=== PATIENT | male | born 1965 | race Caucasian/White ===

== ENCOUNTER 2016-05-26 20:45 | Outpatient (CLI) | payer BC ==
[~2016-05-26 20:45] MED LIST: AZIT-21 PO; CYCL10TA9 PO; FEXO30TA17 PO; GFN600TCR PO; NAPR550T PO; PNT40TEC PO; SERT50TA PO
== END 2016-05-27 06:30 | disposition home or self-care (01) ==
LOC: SLEEP 20:45
PROVIDERS: ATTEND Family Medicine
DX: G47.33 Obstructive sleep apnea (adult) (pediatric) (principal); I10 Essential (primary) hypertension
CPT/HCPCS: 95811

== ENCOUNTER 2016-08-06 17:45 | Emergency (ER) | payer OTHER, BC ==
[~2016-08-06] VITALS: Ht 180.3 cm; Wt 117.9 kg
[2016-08-06] MEDS ORDERED: SERT100T8 (19:31)
[2016-08-06] MEDS ORDERED: PANT40TA3 (19:31)
[2016-08-06] MEDS ORDERED: TETANUS,DIPTH,PERTUSS P/F (BOOSTRIX) 0.5 ML VIAL IM STA (19:35)
--- NOTE | 2016-08-06 19:39 | ED General ---
General Chief Complaint: General Problems/Pain Stated Complaint: SPLINTER/TETANUS SHOT Nursing Triage Note: patient reports getting metal in finger, reports need tetanus shot Nursing Sepsis Screen: No Definite Risk Source of Information: Patient Exam Limitations: No Limitations History of Present Illness Time Seen by Provider: 19:32 Initial Comments 50-year-old male patient presents to the emergency department complaints of needing a tetanus shot. Take a piece of metal in his finger while trying to shut off a water valve. Timing/Duration: 1-3 Hours Allergies and Home Medications Allergies Coded Allergies: No Known Allergies (Verified Allergy, Unknown, 05/10/05) Uncoded Allergies: LACTOSE (Allergy, Unknown, 05/10/05) Home Medications Pantoprazole Sodium 40 Mg Tablet.dr, #30 (Reported) Sertraline HCl 100 Mg Tablet, #30 (Reported) Constitutional: no symptoms reported Musculoskeletal: no symptoms reported Skin: see HPI All Other Systems Reviewed Negative Unless Noted: Yes (Negative excepted noted.) Past Anqczmf-Qetpxr-Rzzlol Hx Patient Social History Alcohol Use: Denies Use Recreational Drug Use: No Type Used: Smokeless Tobacco Recent Foreign Travel: No Contact w/Someone Who Travel: No Recent Infectious Disease Expo: No Immunizations Up To Date Tetanus Booster (TDap): Unknown Date of Pneumonia Vaccine: Dec 05, 2007 Surgeries HX Surgeries: Yes Surgeries: Orthopedic Respiratory Hx Respiratory Disorders: No Cardiovascular Hx Cardiac Disorders: No Gastrointestinal Gastrointestinal Disorders: Gastroesophageal Reflux Musculoskeletal Hx Musculoskeletal Disorders: No Integumentary HX Skin/Integumentary Disorder: No Reviewed Nursing Assessment Reviewed/Agree w Nursing PMH: Yes Family Medical History Significant Family History: No Pertinent Family Hx Physical Exam Vital Signs Vital Sign - Last 12Hours 08/06/16 19:29 Temp 98.2 Pulse 85 Resp 18 B/P (MAP) 168/97 Pulse Ox 95 O2 Delivery Room Air Capillary Refill : Less Than 3 Seconds General Appearance: No Apparent Distress, WD/WN Cardiovascular: Normal Peripheral Pulses Extremity: Normal Capillary Refill, Normal Range of Motion, Non Tender, Other ( small metal splinter noted in the left 2nd finger (removed with a 19 g needle at the time of exam)) Neurologic/Psychiatric: Alert, Oriented x3, Normal Mood/Affect Skin: Normal Color, Warm/Dry, Other (small metal splinter noted in the left 2nd finger) Progress/Results/Core Measures Results/Orders My Orders Orders - MARLEE,JACQUES L PA Dipht,Pertuss(Acell),Tet Adult (Boostrix (08/06/16 19:35) Vital Signs/I&O Blood Pressure Mean: 120 Departure Impression Impression: Primary Impression: Foreign body of finger Disposition: 01 HOME, SELF-CARE Condition: Improved Departure-Patient Inst. Decision time for Depature: 19:38 Referrals: YASSINE FRENCH MD (PCP/Family) Primary Care Physician Patient Instructions: Diphtheria and Tetanus Toxoids, Acellular Pertussis, and Poliovirus Vaccine Add. Discharge Instructions: All discharge instructions reviewed with patient and/or family. Voiced understanding. Drinks [id number] as directed for pain. Ibuprofen 800 mg by mouth every 8 hours as needed for pain. Shower with antibacterial soap. Follow-up with family practitioner for recheck if needed. Return to the emergency department for worsened symptoms, redness, drainage, fever, or any other concerns. JACQUES WHALEN Aug 06, 2016 19:39
[2016-08-06 19:42] VITALS: BP 168/97
== END 2016-08-06 19:42 | disposition home or self-care (01) ==
LOC: EDUNIT# 17:45 → ER 17:46
DX: S60.451A Superficial foreign body of left index finger, initial encounter (principal); Z23 Encounter for immunization; W22.8XXA Striking against or struck by other objects, initial encounter; Y99.8 Other external cause status
CPT/HCPCS: 90471; 90715; 99281

== ENCOUNTER 2017-05-15 14:03 | Inpatient (IN) | payer BC ==
[~2017-05-15] VITALS: Ht 180.3 cm; Wt 129.9 kg
[2017-05-15] VITALS (10 sets, daily range): BP systolic 113–142; BP diastolic 79–97
[~2017-05-15 14:03] MED LIST changes: +PANT40TA3 PO; +SERT100T8 PO
--- OUTSIDE RECORDS SUMMARY | 2017-05-15 14:17 | XMS REPORT | Continuity of Care Document ---
Author Author [facility] Organization [facility] Address Unknown Phone Unavailable Allergies Active Description Code Type Severity Reaction Onset Reported/Identified Relationship to Patient Clinical Status Yes LACTOSE LACTOSE Unknown N/A 05/10/2005 Yes NKANo Known Allergies NKA Miscellaneous Allergy Unknown N/A 05/10/2005 Medications There is no data. Problems Date Dx Coded Attending Type Code Diagnosis Diagnosed By 12/25/2009 Ot 847.0 12/25/2009 Ot 959.09 12/25/2009 Ot E000.8 12/25/2009 Ot E812.0 01/01/2012 Ot 924.3 CONTUSION OF TOE 01/01/2012 Ot E000.8 OTHER EXTERNAL CAUSE STATUS 01/01/2012 Ot E849.0 ACCIDENT IN HOME 01/01/2012 Ot E928.9 ACCIDENT NOS 01/23/2014 Ot 786.09 01/23/2014 Ot 786.50 01/23/2014 BRYN WORTHY, JAD Mooney Ot 787.02 01/23/2014 BRYN WORTHY, JAD Mooney Ot 789.01 09/17/2015 Ot 786.09 RESPIRATORY ABNORM NEC 09/17/2015 Ot 786.50 CHEST PAIN NOS 09/17/2015 JAD CLEMENTE MD Ot 787.02 NAUSEA ALONE 09/17/2015 JAD CLEMENTE MD Ot 789.01 ABDOMINAL PAIN, RIGHT UPPER QUADRANT 04/14/2016 Ot 786.09 RESPIRATORY ABNORM NEC 04/14/2016 Ot 786.50 CHEST PAIN NOS 04/14/2016 JAD CLEMENTE MD Ot 787.02 NAUSEA ALONE 04/14/2016 JAD CLEMENTE MD Ot 789.01 ABDOMINAL PAIN, RIGHT UPPER QUADRANT 05/27/2016 YASSINE FRENCH MD Ot G47.33 OBSTRUCTIVE SLEEP APNEA (ADULT) (PEDIATR 05/27/2016 YASSINE FRENCH MD Ot I10 ESSENTIAL (PRIMARY) HYPERTENSION 05/27/2016 YASSINE FRENCH MD Ot G47.33 OBSTRUCTIVE SLEEP APNEA (ADULT) (PEDIATR 05/27/2016 YASSINE FRENCH MD Ot I10 ESSENTIAL (PRIMARY) HYPERTENSION 07/13/2016 Ot 786.09 RESPIRATORY ABNORM NEC 07/13/2016 Ot 786.50 CHEST PAIN NOS 07/13/2016 JAD CLEMENTE MD Ot 787.02 NAUSEA ALONE 07/13/2016 JAD CLEMENTE MD Ot 789.01 ABDOMINAL PAIN, RIGHT UPPER QUADRANT 08/06/2016 Ot 786.09 RESPIRATORY ABNORM NEC 08/06/2016 Ot 786.50 CHEST PAIN NOS 08/06/2016 JAD CLEMENTE MD Ot 787.02 NAUSEA ALONE 08/06/2016 JAD CLEMENTE MD Ot 789.01 ABDOMINAL PAIN, RIGHT UPPER QUADRANT 08/06/2016 JACQUES MARROQUIN Ot S60.451A SUPERFICIAL FOREIGN BODY OF LEFT INDEX F 08/06/2016 JACQUES MARROQUIN Ot W22.8XXA STRIKING AGAINST OR STRUCK BY OTHER OBJE 08/06/2016 JACQUES MARROQUIN Ot Y99.8 OTHER EXTERNAL CAUSE STATUS 08/06/2016 JACQUES MARROQUIN Ot Z23 ENCOUNTER FOR IMMUNIZATION 08/06/2016 Ot 786.09 RESPIRATORY ABNORM NEC 08/06/2016 Ot 786.50 CHEST PAIN NOS 08/06/2016 JAD CLEMENTE MD Ot 787.02 NAUSEA ALONE 08/06/2016 JAD CLEMENTE MD Ot 789.01 ABDOMINAL PAIN, RIGHT UPPER QUADRANT 08/11/2016 Ot 786.09 RESPIRATORY ABNORM NEC 08/11/2016 Ot 786.50 CHEST PAIN NOS 08/11/2016 JAD CLEMENTE MD Ot 787.02 NAUSEA ALONE 08/11/2016 JAD CLEMENTE MD Ot 789.01 ABDOMINAL PAIN, RIGHT UPPER QUADRANT Procedures There is no data. Results There is no data. Encounters ACCT No. Visit Date/Time Discharge Status Pt. Type Provider Facility Loc./Unit Complaint [id number] 08/06/2016 17:46:00 08/06/2016 19:42:00 DIS Emergency JACQUES MARROQUIN [facility] ER SPLINTER/TETANUS SHOT [id number] 05/26/2016 20:45:00 05/27/2016 06:30:00 DIS Outpatient YASSINE FRENCH MD [facility] SLEEP MEGHAN,SNORING [id number] 11/30/2012 07:36:00 11/30/2012 23:59:59 CLS Outpatient JAD CLEMENTE MD J [facility] RUQ PAIN,NAUSEA, PAIN AND NAUSEA WORSE WHEN EATING [id number] 01/01/2012 08:24:00 Document Registration [id number] 07/11/2011 11:16:00 Document Registration [id number] 12/25/2009 20:23:00 Document Registration
[2017-05-15] MEDS ORDERED: HEParin DRIP 25000 UNIT/500ML 500 ML IV SCH (14:55)
--- NOTE | 2017-05-15 15:44 | History & Physical ---
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 His right leg worsened in pain, swelling so he went to [facility] on 05/12/17- admitted for DVT and PE. He was placed on daily xarelto 15mg due to kidney failure. He was discharged from [facility] on 05/14/17 with Cr going from 1.5 to 1.6 and WBC 14K to 16K; was concerned that he was discharged too soon as he did not look well enough to go home. Pt and his came to [facility] today for follow up and I repeated labs with Cr 1.8 and his dyspnea has worsened. Based on [facility] labs his CrCl was ~70 so he should have been on xarelto 15mg BID for 21 days. Also patient has posterior right leg pain due to the DVT. Admitting to ICU- [facility]- consulting Dr. Goldman for reading Echo to evaluate right heart strain and Dr. Abreu for pulm consult. Pt can not have another CTA at this time. LE Doppler on 05/12/17- Right DVT- mid superficial femoral vein to popliteal vein and posterior tibial and peroneal vein CTA- 05/13/17- scattered pulm emboli nearly all lobes of both lungs- moderate burden- Saddle emboli at bifurcation of right pulm artery into upper/lower lobe arteries. occlusive embolus in left lower lobe vessel, complete obstruction of a basilar right lower lobe vessel. 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 He is obese as well. Will be starting heparin (complete) protocol. Of note patient had been using ibuprofen for his right posterior knee pain the week prior to this event. Date of Admission May 15, 2017 at 14:12 Date Seen by Provider: May 15, 2017 Time Seen by Provider: 11:30 I consulted on this patient on 05/15/17 15:28 Attending Physician Chirag Morales MD Admitting Physician Chirag Morales MD Consult Dr. Lois Goldman, Card Allergies and Home Medications Allergies Coded Allergies: NKANo Known Allergies (Verified Allergy, Unknown, 05/10/05) Uncoded Allergies: LACTOSE (Allergy, Unknown, 05/10/05) Home Medications Hydrocodone/Acetaminophen 1 Each Tablet, 1 TAB PO Q4H PRN for PAIN-MODERATE, ( Reported) Pantoprazole Sodium 40 Mg Tablet.dr, 40 MG PO HS, (Reported) LAST FILLED 04/11/17 #30 Rivaroxaban 15 Mg Tablet, 15 MG PO DAILY, (Reported) Sertraline HCl 100 Mg Tablet, 100 MG PO HS, (Reported) LAST FILLED 04/11/17 #30 Patient Home Medication List Home Medication List Reviewed: Yes Past Wenbjte-Upjosw-Prvmie Hx Patient Social History Marrital Status: Employed/Student: employed Type Used: Smokeless Tobacco Recent Foreign Travel: No Contact w/other who traveled: No Immunizations Up To Date Tetanus Booster (TDap): Unknown Date of Pneumonia Vaccine: Dec 05, 2007 Surgeries Yes Orthopedic Respiratory No Cardiovascular No Neurological No Genitourinary No Gastrointestinal Yes Gastroesophageal Reflux Musculoskeletal No Endocrine History of Endocrine Disorders: No HEENT History of HEENT Disorders: No Cancer No Psychosocial History of Psychiatric Problem: No Integumentary History of Skin or Integumenta: No Blood Transfusions History of Blood Disorders: No Family Medical History Significant Family History: No Pertinent Family Hx Review of Systems Review of Systems General: No Chills, No Night Sweats, Fatigue, No Appetite HEENT: No Head Aches, No Visual Changes Pulmonary: Dyspnea, No Cough Cardiovascular: Chest Pain, No: Palpitations Gastrointestinal: No: Nausea, Vomiting, Abdominal Pain Genitourinary: No Dysuria, No Frequency Neurological: Weakness Physical Exam Vital Signs Vital Signs - First Documented 05/15/17 14:39 Temp 100.5 Pulse 101 Resp 24 B/P (MAP) 116/83 (94) Pulse Ox 96 O2 Delivery Room Air Capillary Refill : General Appearance: WD/WN, Moderate Distress (from pain (right leg)) HEENT: PERRL/EOMI Neck: Full Range of Motion, Normal Inspection, Non Tender, Supple Respiratory: Chest Non Tender, Lungs Clear, Normal Breath Sounds, No Accessory Muscle Use, No Respiratory Distress Cardiovascular: Regular Rate, Rhythm (tachycardia at times.) Gastrointestinal: Normal Bowel Sounds, Non Tender, Soft Rectal: Deferred Extremity: Calf Tenderness (posterior right leg pain, warm, pitting edema 1+) Neurologic/Psychiatric: Alert, Oriented x3 Skin: Normal Color, Warm/Dry Assessment/Plan Assessment/Plan Admission Dx 51 yo M direct admit to ICU- * bilateral pulmonary embolism- heparin gtts PTT/INR, 2D echo to further evaluate right heart strain, IVF -will need hypercoagulable state workup *acute kidney failure- IVF, avoid nephrotoxic agents, (worsened by CTA on 05/13) *Right popliteal DVT- heparin gtts * HTN- normotensive- will monitor- *Depression- continue zoloft, mood stable. *obesity- weight loss with diet and exercise. Dispo: worsening of dyspnea, pain, kidney function- consulting , [facility] to sent CT images to [email or web address] to be uploaded into patient's chart. Admission Status: Inpatient Order (span 2 midnights) Reason for Inpatient Admission: Patient has a significant DVT and pulmonary embolism burden. He was on subtherapeutic xarelto and did not seem to be improving- Kidney failure was worsening; dyspnea was noted and right leg pain was significant. He will be inpatient for 2 midnights to improve his current issues noted above. Assessment and Plan treating for DVT, bilateral PE IVF for renal failure- monitor Cr. Problems: CHIRAG MORALES MD May 15, 2017 15:44
[2017-05-15 16:02] LABS: INR 1.6 (0.8-1.4); PROTHROMBIN TIME PATIENT 19.2 SEC (12.2-14.7)
[2017-05-15 16:09] LABS: ALBUMIN 3.3 GM/DL (3.2-4.5); BILIRUBIN,TOTAL 0.5 MG/DL (0.1-1.0); CALCIUM 8.5 MG/DL (8.5-10.1); CREATININE SERUM 1.8 MG/DL (0.60-1.30); TOTAL PROTEIN 6.5 GM/DL (6.4-8.2)
--- NOTE | 2017-05-15 16:31 | Diagnostic Imaging Report ---
INDICATION: Shortness of breath. COMPARISON: 07/11/2011. FINDINGS: A single view of the chest demonstrates clear lungs bilaterally. The heart is normal. There is no pneumothorax. The osseous structures are normal. IMPRESSION: Negative chest. Dictated by: Dictated on workstation # [id number]
[2017-05-15] MEDS: HEParin 1000 UNIT/ML (10ML VIAL) FOR BOLUS IV SCH ×2 (16:33→21:39)
[2017-05-15] MEDS ORDERED: RIVA15TA PO (16:38)
[2017-05-15] MEDS ORDERED: HYDR-3812 PO (16:38)
[2017-05-15] MEDS: NS IV 1000 ML 1,000 ML IV SCH (16:39)
[2017-05-15] MEDS: HYDROcodone/APAP 5 MG/325 MG (LORTAB) TAB PO PRN ×2 (16:40→21:33)
[2017-05-15 18:08] LABS: BASOPHILS # (AUTO) 0.1 10^3/uL (0.0-0.1); BASOPHILS % (AUTO) 0 % (0-10); EOSINOPHILS # (AUTO) 0.4 10^3/uL (0.0-0.3); EOSINOPHILS % (AUTO) 2 % (0-10); HEMATOCRIT 42 % (40-54); HEMOGLOBIN 14.2 G/DL (13.3-17.7); LYMPHOCYTES # (AUTO) 1.6 X 10^3 (1.0-4.0); LYMPHOCYTES % (AUTO) 10 % (12-44); MEAN CORPUSCULAR HEMOGLOBIN 31 PG (25-34); MEAN CORPUSCULAR HGB CONC 34 G/DL (32-36); MEAN CORPUSCULAR VOLUME 91 FL (80-99); MEAN PLATELET VOLUME 10.2 FL (7.4-10.4); MONOCYTES # (AUTO) 1.9 X 10^3 (0.0-1.0); MONOCYTES % (AUTO) 12 % (0-12); NEUTROPHILS # (AUTO) 12.1 X 10^3 (1.8-7.8); NEUTROPHILS % (AUTO) 75 % (42-75); PLATELET COUNT 268 10^3/uL (130-400); RED BLOOD COUNT 4.59 10^6/uL (4.35-5.85); RED CELL DISTRIBUTION WIDTH 13.2 % (10.0-14.5); WHITE BLOOD COUNT 16.2 10^3/uL (4.3-11.0)
[2017-05-15] MEDS ORDERED: ACETAMINOPHEN 500 MG TAB (TYLENOL) PO PRN (18:15)
[2017-05-15 18:32] LABS: BAND NEUTROPHILS 0 %; BASOPHILS % (MANUAL) 0 %; EOSINOPHILS % (MANUAL) 1 %; LYMPHOCYTES % (MANUAL) 9 %; MONOCYTES % (MANUAL) 12 %; NEUTROPHILS % (MANUAL) 78 %; RBC MORPH NORMAL
[2017-05-15] MEDS: PANTOPRAZOLE 40 MG (PROTONIX) TAB PO SCH (20:03)
[2017-05-15] MEDS: SERTRALINE 100 MG (ZOLOFT) TAB PO SCH (20:03)
[2017-05-16] VITALS (14 sets, daily range): BP systolic 112–140; BP diastolic 60–90
[2017-05-16] MEDS: NS IV 1000 ML 1,000 ML IV SCH ×3 (02:00→13:28)
[2017-05-16 04:19] LABS: BASOPHILS % (AUTO) 0 % (0-10); EOSINOPHILS # (AUTO) 0.5 10^3/uL (0.0-0.3); EOSINOPHILS % (AUTO) 3 % (0-10); HEMATOCRIT 39 % (40-54); LYMPHOCYTES # (AUTO) 2.2 X 10^3 (1.0-4.0); LYMPHOCYTES % (AUTO) 15 % (12-44); MEAN CORPUSCULAR HEMOGLOBIN 30 PG (25-34); MEAN CORPUSCULAR HGB CONC 33 G/DL (32-36); MEAN CORPUSCULAR VOLUME 91 FL (80-99); MONOCYTES # (AUTO) 1.9 X 10^3 (0.0-1.0); MONOCYTES % (AUTO) 13 % (0-12); NEUTROPHILS # (AUTO) 10.4 X 10^3 (1.8-7.8); NEUTROPHILS % (AUTO) 69 % (42-75); PLATELET COUNT 268 10^3/uL (130-400); RED BLOOD COUNT 4.27 10^6/uL (4.35-5.85); RED CELL DISTRIBUTION WIDTH 13.2 % (10.0-14.5)
[2017-05-16 04:34] LABS: BILIRUBIN,TOTAL 0.4 MG/DL (0.1-1.0); CALCIUM 8.3 MG/DL (8.5-10.1); CREATININE SERUM 1.91 MG/DL (0.60-1.30); POTASSIUM 4.1 MMOL/L (3.6-5.0)
--- NOTE | 2017-05-16 07:42 | Pulmonary Consultation ---
History of Present Illness History of Present Illness Date of Consultation 05/16/17 07:37 Time Seen by Provider: 07:37 Date of Admission History of Present Illness 51yo with a recent dx of Acute PE and right DVT at [facility] presented to ICU as direct admit from Dr. Morales. Pt was recently discharged from [facility] on 05/14/17 with Xeralto a15mg daily for acute PE. SOB was progressively worsening which led to this admission. Allergies and Home Medications Allergies Coded Allergies: NKANo Known Allergies (Verified Allergy, Unknown, 05/10/05) Uncoded Allergies: LACTOSE (Allergy, Unknown, 05/10/05) Home Medications Hydrocodone/Acetaminophen 1 Each Tablet, 1 TAB PO Q4H PRN for PAIN-MODERATE, ( Reported) Pantoprazole Sodium 40 Mg Tablet.dr, 40 MG PO HS, (Reported) LAST FILLED 04/11/17 #30 Rivaroxaban 15 Mg Tablet, 15 MG PO DAILY, (Reported) Sertraline HCl 100 Mg Tablet, 100 MG PO HS, (Reported) LAST FILLED 04/11/17 #30 Past [place]ts[place]-Jpsktf-Gkcfuo Hx Patient Social History Alcohol Use: Denies Use Recreational Drug Use: No Smoking Status: Former Smoker Type Used: Smokeless Tobacco Recent Foreign Travel: No Contact w/Someone Who Travel: No Recent Infectious Disease Expo: No Recent Hopitalizations: Yes Immunizations Up To Date Tetanus Booster (TDap): Unknown Date of Pneumonia Vaccine: Dec 05, 2007 Date of Influenza Vaccine: Dec 04, 2017 Seasonal Allergies Seasonal Allergies: Yes Surgeries History of Surgeries: Yes Surgeries: Orthopedic Respiratory History of Respiratory Disorde: Yes Respiratory Disorders: Asthma, Pulmonary Embolism, Sleep Apnea Cardiovascular History of Cardiac Disorders: No Neurological History of Neurological Disord: No Genitourinary History of Genitourinary Disor: No Gastrointestinal History of Gastrointestinal Di: Yes (esophageal ulcer, ) Gastrointestinal Disorders: Gastroesophageal Reflux, Hiatal Hernia, Ulcer Musculoskeletal History of Musculoskeletal Dis: No Endocrine History of Endocrine Disorders: No HEENT History of HEENT Disorders: No Cancer History of Cancer: Yes Cancer: Skin Cancer Comment: 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 Dyspnea, Edema, Lt Headedness, Other Gastrointestinal: Nausea Neurological: Weakness Exam Exam Vital Signs Date Time Temp Pulse Resp B/P (MAP) Pulse Ox O2 Delivery O2 Flow Rate FiO2 05/16/17 07:00 98.6 05/16/17 06:00 78 12 124/90 (101) 93 Room Air 05/16/17 05:00 81 30 116/85 (95) 92 Room Air 05/16/17 04:00 76 12 126/89 (101) 97 Room Air 05/16/17 04:00 95 Room Air 05/16/17 04:00 99.1 05/16/17 03:00 78 28 122/86 (98) 94 Room Air 05/16/17 02:00 79 12 119/90 (100) 93 Room Air 05/16/17 01:00 87 05/16/17 01:00 85 19 126/89 (101) 93 Room Air 05/16/17 00:00 99.5 05/16/17 00:00 96 Room Air 05/16/17 00:00 92 20 124/85 (98) 93 Room Air 05/16/17 00:00 99.0 05/15/17 23:00 89 14 120/80 (93) 93 Room Air 05/15/17 22:00 100.0 05/15/17 22:00 92 16 137/92 (107) 98 Room Air 05/15/17 21:00 97 16 126/90 (102) 96 Room Air 05/15/17 21:00 100.3 05/15/17 20:05 95 Room Air 05/15/17 20:00 95 16 122/93 (103) 95 Room Air 05/15/17 20:00 100.6 05/15/17 19:00 103 15 117/80 (92) 94 Room Air 05/15/17 19:00 103 05/15/17 18:09 100.3 05/15/17 18:00 109 15 113/81 (92) 92 Room Air 05/15/17 17:07 99.7 05/15/17 17:00 90 15 142/79 (100) 96 Room Air 05/15/17 16:00 92 17 136/97 (110) 96 Room Air 05/15/17 15:00 Room Air 05/15/17 15:00 92 16 128/92 (104) 96 Room Air 05/15/17 14:40 101 05/15/17 14:39 100.5 101 24 116/83 (94) 96 Room Air I & O 05/16/17 07:00 Intake Total 940 ml Output Total 1475 ml Balance -535 ml General Appearance: WD/WN, Moderate Distress (from pain (right leg)) HEENT: PERRL/EOMI, TMs Normal, Normal ENT Inspection Respiratory: Chest Non Tender, Lungs Clear, Normal Breath Sounds, No Accessory Muscle Use, No Respiratory Distress Cardiovascular: Regular Rate, Rhythm (tachycardia at times.) Gastrointestinal: non tender, soft, no organomegaly, no pulsatile mass Extremity: Calf Tenderness Neurologic/Psychiatric: Alert, Oriented x3 Skin: Normal Color, Warm/Dry Results Lab Laboratory Tests 05/15/17 15:35 05/16/17 03:45 Assessment/Plan Assessment/Plan Bilateral PE with acute RLE DVT - Provoked pt works with [employer] and 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 -Echocardiogram is pending -Change anticoagulation to Eliquis Acute renal failure -IVF and monitor MEGHAN with obesity -PT has his CPAP machine at bedside. 255 SANNA CORNELL DO May 16, 2017 07:42
[2017-05-16] MEDS: HYDROcodone/APAP 5 MG/325 MG (LORTAB) TAB PO PRN ×3 (08:02→21:05)
--- NOTE | 2017-05-16 08:20 | Consultation-Cardiology ---
HPI-Cardiology Cardiology Consultation Date of Consultation 05/16/17 Date of Admission Time Seen by Provider: 08:16 Indication: DVT HPI 51 years old gentleman with history of sleep apnea, hospitalized in [facility] last week for leg pain, diagnosed with DVT and PE. He was started on Xarelto and discharged home, continue to have worsening pain in his leg. Denied any shortness of breath. No palpitation, no syncope or near syncopal episodes. No claudication. 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 No fever or chills. Upper my evaluation he still having pain in his calf. No swelling was reported. Home Medications & Allergies Allergies: Coded Allergies: NKANo Known Allergies (Verified Allergy, Unknown, 05/10/05) Uncoded Allergies: LACTOSE (Allergy, Unknown, 05/10/05) Home Medication List Reviewed: Yes LQS-[id number]-Wunjyx Hx Patient Social History Marital Status: Employed/Student: employed Alcohol Use: Denies Use Recreational Drug Use: No Smoking Status: Former Smoker Type Used: Smokeless Tobacco Recent Foreign Travel: No Recent Infectious Disease Expo: No Recent Hopitalizations: Yes Physical Abuse Screen: No Sexual Abuse: No Immunizations Up To Date Tetanus Booster (TDap): Unknown Date of Pneumonia Vaccine: Dec 05, 2007 Date of Influenza Vaccine: Dec 04, 2017 Past Medical History Discussed below Family Medical History Significant Family History: No Pertinent Family Hx Family Medical Hx Non Contributory Constitutional: no symptoms reported, see HPI EENTM: see HPI, no symptoms reported Respiratory: see HPI, No cough, dyspnea on exertion, No hemoptysis, No orthopnea, No phlegm, No short of breath, No stridor, No wheezing, No other Cardiovascular: see HPI, No chest pain, No edema, No Hx of Intervention, No palpitations, No syncope, No vascular heart diseas, No other Gastrointestinal: no symptoms reported, see HPI Genitourinary: no symptoms reported, see HPI Musculoskeletal: see HPI, muscle pain (calf) Skin: no symptoms reported, see HPI Psychiatric/Neurological: No Symptoms Reported, See HPI Reviewed Test Results Reviewed Test Results Lab Laboratory Tests Test 05/15/17 15:35 05/15/17 20:55 05/16/17 03:45 Range/Units White Blood Count 16.2 H 15.0 H 4.3-11.0 10^3/uL Red Blood Count 4.59 4.27 L 4.35-5.85 10^6/uL Hemoglobin 14.2 13.0 L 13.3-17.7 G/DL Hematocrit 42 39 L 40-54 % Mean Corpuscular Volume 91 91 80-99 FL Mean Corpuscular Hemoglobin 31 30 25-34 PG Mean Corpuscular Hemoglobin Concent 34 33 32-36 G/DL Red Cell Distribution Width 13.2 13.2 10.0-14.5 % Platelet Count 268 268 130-400 10^3/uL Mean Platelet Volume 10.2 10.0 7.4-10.4 FL Neutrophils (%) (Auto) 75 69 42-75 % Lymphocytes (%) (Auto) 10 L 15 12-44 % Monocytes (%) (Auto) 12 13 H 0-12 % Eosinophils (%) (Auto) 2 3 0-10 % Basophils (%) (Auto) 0 0 0-10 % Neutrophils # (Auto) 12.1 H 10.4 H 1.8-7.8 X 10^3 Lymphocytes # (Auto) 1.6 2.2 1.0-4.0 X 10^3 Monocytes # (Auto) 1.9 H 1.9 H 0.0-1.0 X 10^3 Eosinophils # (Auto) 0.4 H 0.5 H 0.0-0.3 10^3/uL Basophils # (Auto) 0.1 0.0 0.0-0.1 10^3/uL Neutrophils % (Manual) 78 % Lymphocytes % (Manual) 9 % Monocytes % (Manual) 12 % Eosinophils % (Manual) 1 % Basophils % (Manual) 0 % Band Neutrophils 0 % Blood Morphology Comment NORMAL Prothrombin Time 19.2 H 12.2-14.7 SEC INR Comment 1.6 H 0.8-1.4 Activated Partial Thromboplast Time 48 H 57 H 86 H 24-35 SEC Sodium Level 134 L 138 135-145 MMOL/L Potassium Level 4.0 4.1 3.6-5.0 MMOL/L Chloride Level 101 104 98-107 MMOL/L Carbon Dioxide Level 26 24 21-32 MMOL/L Anion Gap 7 10 5-14 MMOL/L Blood Urea Nitrogen 20 H 22 H 7-18 MG/DL Creatinine 1.80 H 1.91 H 0.60-1.30 MG/DL Estimat Glomerular Filtration Rate 40 37 BUN/Creatinine Ratio 11 12 Glucose Level 96 110 H 70-105 MG/DL Lactic Acid Level 0.85 0.50-2.00 MMOL/L Calcium Level 8.5 8.3 L 8.5-10.1 MG/DL Total Bilirubin 0.5 0.4 0.1-1.0 MG/DL Aspartate Amino Transf (AST/SGOT) 12 9 5-34 U/L Alanine Aminotransferase (ALT/SGPT) 11 12 0-55 U/L Alkaline Phosphatase 78 68 40-136 U/L Total Protein 6.5 6.0 L 6.4-8.2 GM/DL Albumin 3.3 3.0 L 3.2-4.5 GM/DL Physical Exam Vital Signs Vital Signs - First Documented 05/15/17 14:39 Temp 100.5 Pulse 101 Resp 24 B/P (MAP) 116/83 (94) Pulse Ox 96 O2 Delivery Room Air Capillary Refill : General Appearance: No Apparent Distress, WD/WN Eyes: Bilateral Eye Normal Inspection, Bilateral Eye PERRL, Bilateral Eye EOMI HEENT: PERRL/EOMI, TMs Normal, Normal ENT Inspection, Pharynx Normal Neck: Full Range of Motion, Normal Inspection, Non Tender, Supple, Carotid Bruit Respiratory: Chest Non Tender, Lungs Clear, Normal Breath Sounds, No Accessory Muscle Use, No Respiratory Distress Cardiovascular: Regular Rate, Rhythm, No Edema, No Gallop, No JVD, No Murmur, Normal Peripheral Pulses Gastrointestinal: Normal Bowel Sounds, No Organomegaly, No Pulsatile Mass, Non Tender, Soft Back: Normal Inspection, No CVA Tenderness, No Vertebral Tenderness Extremity: Normal Capillary Refill, Normal Inspection, Normal Range of Motion, Non Tender, No Calf Tenderness, No Pedal Edema Neurologic/Psychiatric: Alert, Oriented x3, No Motor/Sensory Deficits, Normal Mood/Affect Skin: Normal Color, Warm/Dry Lymphatic: No Adenopathy A/P-Cardiology Admission Diagnosis Deep venous thrombosis Pulmonary embolism Acute renal insufficiency COPD Assessment/Plan Deep venous thrombosis and pulmonary embolism, diagnosed last week, having worsening pain. I will repeat venous Doppler, I changed him to Eliquis 10 mg twice daily for one week then 5 mg twice daily and continue to monitor, patient will need to have hypercoagulable state workup. I will start with factor V Leiden at this point. Acute renal insufficiency, receiving IV fluids, continue to monitor renal function. COPD/obstructive sleep apnea using C Pap Depression, maintained on Zoloft Obesity, BMI 39, we discussed diet and exercise with weight loss. Clinical Quality Measures DVT/VTE Risk/Contraindication: Risk Factor Score Per Nursin RFS Level Per Nursing on Admit: 4+=Very High CARLOS SALDAÑA MD May 16, 2017 08:20
--- NOTE | 2017-05-16 08:31 | Progress Note (SOAP) ---
Subjective Subjective Date Seen by Provider: May 16, 2017 Time Seen by Provider: 08:50 No overnight events Eating normal Son came and visited last night and became ill. Pt denies issues with breathing, nausea, vomiting. No chest pain, right leg pain is still present Urinating without difficulty Pt wonders what the time frame is for going home. Review of Systems General: No Chills, No Night Sweats, Fatigue, No Appetite HEENT: No Head Aches, No Visual Changes Pulmonary: Dyspnea, No Cough Cardiovascular: Chest Pain, No: Palpitations Gastrointestinal: No: Nausea, Vomiting, Abdominal Pain Genitourinary: No Dysuria, No Frequency Neurological: Weakness Objective Exam Vital Signs Vital Signs Date Time Temp Pulse Resp B/P (MAP) Pulse Ox O2 Delivery O2 Flow Rate FiO2 05/16/17 08:03 98.0 80 16 137/70 (92) 94 Room Air 05/16/17 07:00 98.6 05/16/17 06:00 78 12 124/90 (101) 93 Room Air 05/16/17 05:00 81 30 116/85 (95) 92 Room Air 05/16/17 04:00 76 12 126/89 (101) 97 Room Air 05/16/17 04:00 95 Room Air 05/16/17 04:00 99.1 05/16/17 03:00 78 28 122/86 (98) 94 Room Air 05/16/17 02:00 79 12 119/90 (100) 93 Room Air 05/16/17 01:00 87 05/16/17 01:00 85 19 126/89 (101) 93 Room Air 05/16/17 00:00 99.5 05/16/17 00:00 96 Room Air 05/16/17 00:00 92 20 124/85 (98) 93 Room Air 05/16/17 00:00 99.0 05/15/17 23:00 89 14 120/80 (93) 93 Room Air 05/15/17 22:00 100.0 05/15/17 22:00 92 16 137/92 (107) 98 Room Air 05/15/17 21:00 97 16 126/90 (102) 96 Room Air 05/15/17 21:00 100.3 05/15/17 20:05 95 Room Air 05/15/17 20:00 95 16 122/93 (103) 95 Room Air 05/15/17 20:00 100.6 05/15/17 19:00 103 15 117/80 (92) 94 Room Air 05/15/17 19:00 103 05/15/17 18:09 100.3 05/15/17 18:00 109 15 113/81 (92) 92 Room Air 05/15/17 17:07 99.7 05/15/17 17:00 90 15 142/79 (100) 96 Room Air 05/15/17 16:00 92 17 136/97 (110) 96 Room Air 05/15/17 15:00 Room Air 05/15/17 15:00 92 16 128/92 (104) 96 Room Air 05/15/17 14:40 101 05/15/17 14:39 100.5 101 24 116/83 (94) 96 Room Air I & O 05/16/17 07:00 Intake Total 940 ml Output Total 1475 ml Balance -535 ml General Appearance: WD/WN, Moderate Distress (from pain (right leg)) Eyes: Bilateral Eye Normal Inspection, Bilateral Eye PERRL, Bilateral Eye EOMI HEENT: PERRL/EOMI Neck: Full Range of Motion, Normal Inspection, Non Tender, Supple Respiratory: Chest Non Tender, Lungs Clear, Normal Breath Sounds, No Accessory Muscle Use, No Respiratory Distress Cardiovascular: Regular Rate, Rhythm (tachycardia at times.) Gastrointestinal: Normal Bowel Sounds, Non Tender, Soft Rectal: Deferred Back: Normal Inspection, No CVA Tenderness, No Vertebral Tenderness Extremity: Calf Tenderness (posterior right leg pain, warm, pitting edema 1+) Neurologic/Psychiatric: Alert, Oriented x3 Skin: Normal Color, Warm/Dry Lymphatic: No Adenopathy Results Lab Laboratory Tests 05/15/17 15:35: White Blood Count 16.2H, Red Blood Count 4.59, Hemoglobin 14.2, Hematocrit 42, Mean Corpuscular Volume 91, Mean Corpuscular Hemoglobin 31, Mean Corpuscular Hemoglobin Concent 34, Red Cell Distribution Width 13.2, Platelet Count 268, Mean Platelet Volume 10.2, Neutrophils (%) (Auto) 75, Lymphocytes (%) (Auto) 10L , Monocytes (%) (Auto) 12, Eosinophils (%) (Auto) 2, Basophils (%) (Auto) 0, Neutrophils # (Auto) 12.1H, Lymphocytes # (Auto) 1.6, Monocytes # (Auto) 1.9H, Eosinophils # (Auto) 0.4H, Basophils # (Auto) 0.1, Neutrophils % (Manual) 78, Lymphocytes % (Manual) 9, Monocytes % (Manual) 12, Eosinophils % (Manual) 1, Basophils % (Manual) 0, Band Neutrophils 0, Blood Morphology Comment NORMAL, Prothrombin Time 19.2H, INR Comment 1.6H, Activated Partial Thromboplast Time 48H, Sodium Level 134L, Potassium Level 4.0, Chloride Level 101, Carbon Dioxide Level 26, Anion Gap 7, Blood Urea Nitrogen 20H, Creatinine 1.80H, Estimat Glomerular Filtration Rate 40, BUN/Creatinine Ratio 11, Glucose Level 96, Lactic Acid Level 0.85, Calcium Level 8.5, Total Bilirubin 0.5, Aspartate Amino Transf (AST/SGOT) 12, Alanine Aminotransferase (ALT/SGPT) 11, Alkaline Phosphatase 78, Total Protein 6.5, Albumin 3.3 05/15/17 20:55: Activated Partial Thromboplast Time 57H 05/16/17 03:45: White Blood Count 15.0H, Red Blood Count 4.27L, Hemoglobin 13.0L, Hematocrit 39L , Mean Corpuscular Volume 91, Mean Corpuscular Hemoglobin 30, Mean Corpuscular Hemoglobin Concent 33, Red Cell Distribution Width 13.2, Platelet Count 268, Mean Platelet Volume 10.0, Neutrophils (%) (Auto) 69, Lymphocytes (%) (Auto) 15 , Monocytes (%) (Auto) 13H, Eosinophils (%) (Auto) 3, Basophils (%) (Auto) 0, Neutrophils # (Auto) 10.4H, Lymphocytes # (Auto) 2.2, Monocytes # (Auto) 1.9H, Eosinophils # (Auto) 0.5H, Basophils # (Auto) 0.0, Activated Partial Thromboplast Time 86H, Sodium Level 138, Potassium Level 4.1, Chloride Level 104 , Carbon Dioxide Level 24, Anion Gap 10, Blood Urea Nitrogen 22H, Creatinine 1.91H, Estimat Glomerular Filtration Rate 37, BUN/Creatinine Ratio 12, Glucose Level 110H, Calcium Level 8.3L, Total Bilirubin 0.4, Aspartate Amino Transf (AST /SGOT) 9, Alanine Aminotransferase (ALT/SGPT) 12, Alkaline Phosphatase 68, Total Protein 6.0L, Albumin 3.0L Assessment/Plan Assessment/Plan Admission Dx 51 yo M direct admit to ICU- * bilateral pulmonary embolism- switched to eliquis 10mg BID x7days then 5mg BID- as eliquis will not need to be renally adjusted. 2D echo normal LVEF 60-65 % -will need hypercoagulable state workup- factor V leiden ordered. *acute kidney failure- IVF, avoid nephrotoxic agents, (worsened by CTA on 05/13) *Right popliteal DVT- eliquis * HTN- normotensive- will monitor- *Depression- continue zoloft, mood stable. *obesity- weight loss with diet and exercise. *SIRS- fever, leukocytosis, tachycardia- due to PE, DVT- supportive care- treating DVT, PE- continue to monitor- gusman-cultured. Dispo: patient is improving.- will plan to monitor overnight with plan to d/c to home tomorrow 05/17/17 if he continues to improve- would like to see Cr start to trend down. Reason for Inpatient Admission: patient was admitted to ICU for concern for acute decompensation related to his renal failure and DVT, pulmonary embolism burden. Assessment and Plan as above Problems: (1) Bilateral pulmonary embolism (2) Acute deep vein thrombosis of right popliteal vein (3) Acute renal failure Qualifiers: Qualified Codes: N17.9 - Acute kidney failure, unspecified Assessment & Plan: IVF, avoid nephrotoxic agents. (4) Dysthymia (5) SIRS without acute organ dysfunction due to non-infectious process Admission Dx 51 yo M direct admit to ICU- * bilateral pulmonary embolism- heparin gtts PTT/INR, 2D echo to further evaluate right heart strain, IVF -will need hypercoagulable state workup *acute kidney failure- IVF, avoid nephrotoxic agents, (worsened by CTA on 05/13) *Right popliteal DVT- heparin gtts * HTN- normotensive- will monitor- *Depression- continue zoloft, mood stable. *obesity- weight loss with diet and exercise. Dispo: worsening of dyspnea, pain, kidney function- consulting , Dr. Abreu [facility] to sent CT images to [employer] to be uploaded into patient's chart. Clinical Quality Measures Admission Status Admission Dx 51 yo M direct admit to ICU- * bilateral pulmonary embolism- heparin gtts PTT/INR, 2D echo to further evaluate right heart strain, IVF -will need hypercoagulable state workup *acute kidney failure- IVF, avoid nephrotoxic agents, (worsened by CTA on 05/13) *Right popliteal DVT- heparin gtts * HTN- normotensive- will monitor- *Depression- continue zoloft, mood stable. *obesity- weight loss with diet and exercise. Dispo: worsening of dyspnea, pain, kidney function- consulting , [facility] to sent CT images to [employer] to be uploaded into patient's chart. DVT/VTE Risk/Contraindication: Risk Factor Score Per Nursin RFS Level Per Nursing on Admit: 4+=Very High YASSINE FRENCH MD May 16, 2017 08:31
[2017-05-16] MEDS: APIXABAN 5 MG (ELIQUIS) TABLET PO SCH ×2 (08:44→21:04)
--- NOTE | 2017-05-16 11:14 | Diagnostic Imaging Report ---
INDICATION: Right leg swelling and pain. History of PE. The right common femoral vein is patent. The profunda is patent. The proximal/upper superficial femoral vein is patent. There is however a clot commencing at the mid third of the superficial femoral vein extending caudally through the popliteal vein and into the upper calf at the tibial peroneal trunk. The left leg however shows widely patent femoral popliteal deep venous system in the left lower extremity superficial venous structures were patent. IMPRESSION: Right lower extremity DVT at the mid to lower superficial femoral vein through the popliteal and into the upper calf as described. Patent negative left leg. Report was called to [facility] ICU by kristy at 11:15 m. Dictated by: Dictated on workstation # [id number]
[2017-05-16] MEDS: SERTRALINE 100 MG (ZOLOFT) TAB PO SCH (21:04)
[2017-05-16] MEDS: PANTOPRAZOLE 40 MG (PROTONIX) TAB PO SCH (21:04)
[2017-05-17] VITALS: BP 133/63
[2017-05-17] MEDS: NS IV 1000 ML 1,000 ML IV SCH ×2 (00:15→10:36)
[2017-05-17 04:00] VITALS: BP 121/60
[2017-05-17 06:02] LABS: BASOPHILS # (AUTO) 0.1 10^3/uL (0.0-0.1); BASOPHILS % (AUTO) 0 % (0-10); EOSINOPHILS # (AUTO) 0.7 10^3/uL (0.0-0.3); EOSINOPHILS % (AUTO) 6 % (0-10); HEMATOCRIT 39 % (40-54); HEMOGLOBIN 13.1 G/DL (13.3-17.7); LYMPHOCYTES # (AUTO) 1.5 X 10^3 (1.0-4.0); LYMPHOCYTES % (AUTO) 11 % (12-44); MEAN CORPUSCULAR HEMOGLOBIN 31 PG (25-34); MEAN CORPUSCULAR HGB CONC 34 G/DL (32-36); MEAN CORPUSCULAR VOLUME 91 FL (80-99); MEAN PLATELET VOLUME 9.6 FL (7.4-10.4); MONOCYTES # (AUTO) 1.6 X 10^3 (0.0-1.0); MONOCYTES % (AUTO) 12 % (0-12); NEUTROPHILS # (AUTO) 9.5 X 10^3 (1.8-7.8); NEUTROPHILS % (AUTO) 71 % (42-75); PLATELET COUNT 291 10^3/uL (130-400); RED CELL DISTRIBUTION WIDTH 12.9 % (10.0-14.5); WHITE BLOOD COUNT 13.4 10^3/uL (4.3-11.0)
[2017-05-17 06:20] LABS: ALBUMIN 2.9 GM/DL (3.2-4.5); CALCIUM 8.1 MG/DL (8.5-10.1); CREATININE SERUM 1.72 MG/DL (0.60-1.30)
--- NOTE | 2017-05-17 06:26 | Pulmonary Progress Note ---
Subjective Time Seen by Provider: 06:24 Subjective/Events-last exam Pt looks much improved. Pt is on RA. Focused Exam Evaluation Lactate Level Laboratory Tests 05/15/17 15:35: Lactic Acid Level 0.85 Exam Exam Vital Signs Date Time Temp Pulse Resp B/P (MAP) Pulse Ox O2 Delivery O2 Flow Rate FiO2 05/17/17 04:00 98.5 81 12 121/60 (80) 97 Room Air 05/17/17 00:00 98.7 98 16 133/63 (86) 93 NIV CPAP 05/16/17 20:00 101.2 102 16 140/64 (89) 95 Room Air 05/16/17 16:51 99.4 93 16 131/60 (83) 93 Room Air 05/16/17 12:25 98.3 81 20 134/71 (92) 95 Room Air 05/16/17 11:35 98.6 79 20 125/81 (96) 95 Room Air 05/16/17 09:00 96 14 112/81 (91) 93 Room Air 05/16/17 08:03 98.0 80 16 137/70 (92) 94 Room Air 05/16/17 08:00 Room Air 05/16/17 07:00 71 10 118/81 (93) 94 Room Air 05/16/17 07:00 98.6 05/16/17 07:00 71 I & O 05/17/17 07:00 Intake Total 4840 ml Output Total 425 ml Balance 4415 ml General Appearance: No Apparent Distress, WD/WN HEENT: PERRL/EOMI Neck: Full Range of Motion, Normal Inspection, Non Tender, Supple Respiratory: Chest Non Tender, Lungs Clear, Normal Breath Sounds, No Accessory Muscle Use, No Respiratory Distress Cardiovascular: Regular Rate, Rhythm (tachycardia at times.) Gastrointestinal: non tender, soft, no organomegaly, no pulsatile mass Extremity: Calf Tenderness (posterior right leg pain, warm, pitting edema 1+) Neurologic/Psychiatric: Alert, Oriented x3 Skin: Normal Color, Warm/Dry Lymphatic: No Adenopathy Results Lab Laboratory Tests 05/15/17 15:35 05/16/17 03:45 05/17/17 05:45 Assessment/Plan Assessment/Plan Bilateral PE with acute RLE DVT - 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 PT is ok for discharge from pulmonary standpoint with Lita. 232 SANNA CORNELL DO May 17, 2017 06:26
[2017-05-17 08:00] VITALS: BP 133/65
[2017-05-17] MEDS: HYDROcodone/APAP 5 MG/325 MG (LORTAB) TAB PO PRN (08:00)
[2017-05-17] MEDS: APIXABAN 5 MG (ELIQUIS) TABLET PO SCH (08:00)
--- NOTE | 2017-05-17 08:46 | Cardiology Progress Note ---
Subjective Date Seen by Provider: May 17, 2017 Time Seen by Provider: 08:44 Subjective/Events-last exam Patient is sitting up in bed. No new complaints. Continues to have RLE pain, but reports some improvement. Denies any dyspnea. Focused Exam Evaluation Lactate Level Laboratory Tests 05/15/17 15:35: Lactic Acid Level 0.85 Objective-Cardiology Exam Last Set of Vital Signs Vital Signs 05/17/17 04:00 Temp 98.5 Pulse 81 Resp 12 B/P (MAP) 121/60 (80) Pulse Ox 97 O2 Delivery Room Air Capillary Refill : I&O Intake and Output 05/17/17 00:00 Intake Total 3740 ml Output Total 975 ml Balance 2765 ml Intake Oral 2740 ml IV Total 1000 ml Output Urine Total 975 ml # Voids 4 # Bowel Movements 1 General: Alert, Oriented X3, Cooperative HEENT: Atraumatic, PERRLA Neck: Supple, No JVD, No Thyromegaly Lungs: Clear to Auscultation, Normal Air Movement Heart: Regular Rate, Normal S1, Normal S2, No Murmurs Abdomen: Normal Bowel Sounds, Soft, No Tenderness, No Hepatosplenomegaly, No Masses Extremities: No Clubbing, No Cyanosis, Normal Pulses, No Tenderness/Swelling, Other (trace edema RLE) Skin: No Rashes, No Breakdown, No Significant Lesion Neuro: Normal Gait, Normal Speech, Strength at 5/5 X4 Ext, Normal Tone, Sensation Intact Results Lab Laboratory Tests 05/17/17 05:45 A/P-Cardiology Admission Diagnosis Deep venous thrombosis Pulmonary embolism Acute renal insufficiency COPD Assessment/Plan Deep venous thrombosis and pulmonary embolism, diagnosed last week, having worsening pain. venous doppler revealed RLE DVT extending from superficial femoral vein to popliteal vein extending into calf. I changed him to Eliquis 10 mg twice daily for one week then 5 mg twice daily and continue to monitor, patient will need to have hypercoagulable state workup. factor V Leiden was ordered at this point, results pending. Acute renal insufficiency, receiving IV fluids, continue to monitor renal function. COPD/obstructive sleep apnea using C Pap Depression, maintained on Zoloft Obesity, BMI 39, we discussed diet and exercise with weight loss. Clinical Quality Measures DVT/VTE Risk/Contraindication: Risk Factor Score Per Nursin RFS Level Per Nursing on Admit: 4+=Very High EPI AYALA May 17, 2017 08:46
[2017-05-17 12:00] VITALS: BP 135/70
[2017-05-17] MEDS ORDERED: APIX5TAB PO (12:19)
--- NOTE | 2017-05-17 12:23 | Discharge Inst-Simple/Standard ---
Discharge Inst-Standard Patient Instructions/Follow Up Plan of Care/Instructions/FU: ----Eliquis: take 10mg (2 tabs) po BID for 6 days; then 5mg (1 tab) po BID thereafter. ----Use your Eliquis coupons ----Ambulate as tolerated ----Return to work on 05/26/17 ----Follow up in 1 week (05/25/17) at [facility] ---Follow up with Dr. Goldman ---Factor V leiden lab is still pending; We will let you know the results when the lab comes back. Activity as Tolerated: Yes Discharge Diet: Regular Diet [facility] to [facility]: Worsening issues with breathing- intractable pain- --chest pain YASSINE FRENCH MD May 17, 2017 12:23
--- NOTE | 2017-05-17 12:35 | Discharge Summary ---
Diagnosis/Chief Complaint Date of Admission May 15, 2017 at 14:12 Date of Discharge May 17, 2017 Admission Diagnosis Admission Diagnosis * bilateral pulmonary embolism- *acute kidney failure- *Right popliteal DVT- * HTN- *Depression- *obesity- Discharge Diagnosis (1) Bilateral pulmonary embolism (2) Acute deep vein thrombosis of right popliteal vein (3) Acute renal failure Qualifiers: Qualified Codes: N17.9 - Acute kidney failure, unspecified (4) Dysthymia (5) SIRS without acute organ dysfunction due to non-infectious process (6) Obesity BMI 39 Reason Hospital Visit 51 yo M- direct admit to ICU for dyspnea, concern for worsening pulmonary embolism, and worsening acute kidney failure s/p CTA chest 05/13/17- Leading up to today's events: 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 His right leg worsened in pain, swelling so he went to [facility] on 05/12/17- admitted for DVT and PE. He was placed on daily xarelto 15mg due to kidney failure. He was discharged from [facility] on 05/14/17 with Cr going from 1.5 to 1.6 and WBC 14K to 16K; was concerned that he was discharged too soon as he did not look well enough to go home. Pt and his came to [facility] today for follow up and I repeated labs with Cr 1.8 and his dyspnea has worsened. Based on [facility] labs his CrCl was ~70 so he should have been on xarelto 15mg BID for 21 days. Also patient has posterior right leg pain due to the DVT. Admitting to ICU- [facility]- consulting Dr. Goldman for reading Echo to evaluate right heart strain and Dr. Abreu for pulm consult. Pt can not have another CTA at this time. LE Doppler on 05/12/17- Right DVT- mid superficial femoral vein to popliteal vein and posterior tibial and peroneal vein CTA- 05/13/17- scattered pulm emboli nearly all lobes of both lungs- moderate burden- Saddle emboli at bifurcation of right pulm artery into upper/lower lobe arteries. occlusive embolus in left lower lobe vessel, complete obstruction of a basilar right lower lobe vessel. 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 He is obese as well. Will be starting heparin (complete) protocol. Of note patient had been using ibuprofen for his right posterior knee pain the week prior to this event. Discharge Summary Hospital Course Hospital Course 51 yo M direct admit for worsening of status following being discharged from [facility]. Patient was admitted to the ICU for full heparin protocol regarding his bilateral pulmonary embolisms and right leg DVT. He was switched to eliquis as it does not have as much renal adjustment as xarelto does. Patient's kidney function improved on day of discharge with his Cr peaking at 1.9 and now is trending down. Urine output was adequate. Pt's acute renal failure attributed to dehydration, SIRS from the embolisms, NSAID use, and CT contrast. He was deemed stable for discharge 05/17/17. He will follow up in [address] [facility] 05/25/17. Labs Laboratory Tests 05/15/17 15:35: White Blood Count 16.2H, Lymphocytes (%) (Auto) 10L, Neutrophils # (Auto) 12.1H , Monocytes # (Auto) 1.9H, Eosinophils # (Auto) 0.4H, Prothrombin Time 19.2H, INR Comment 1.6H, Activated Partial Thromboplast Time 48H, Sodium Level 134L, Blood Urea Nitrogen 20H, Creatinine 1.80H 05/15/17 20:55: Activated Partial Thromboplast Time 57H 05/16/17 03:45: White Blood Count 15.0H, Neutrophils # (Auto) 10.4H, Monocytes # (Auto) 1.9H, Eosinophils # (Auto) 0.5H, Activated Partial Thromboplast Time 86H, Blood Urea Nitrogen 22H, Creatinine 1.91H, Red Blood Count 4.27L, Hemoglobin 13.0L, Hematocrit 39L, Monocytes (%) (Auto) 13H, Glucose Level 110H, Calcium Level 8.3L , Total Protein 6.0L, Albumin 3.0L 05/16/17 10:35: 05/17/17 05:45: White Blood Count 13.4H, Red Blood Count 4.30L, Hemoglobin 13.1L, Hematocrit 39L , Lymphocytes (%) (Auto) 11L, Neutrophils # (Auto) 9.5H, Monocytes # (Auto) 1.6H , Eosinophils # (Auto) 0.7H, Blood Urea Nitrogen 20H, Creatinine 1.72H, Glucose Level 109H, Calcium Level 8.1L, Albumin 2.9L Procedures None. Consultations Dr. Susi Abreu. Discharge Physical Examination Allergies: Coded Allergies: NKANo Known Allergies (Verified Allergy, Unknown, 05/10/05) Uncoded Allergies: LACTOSE (Allergy, Unknown, 05/10/05) Vitals & I&Os Vital Signs Date Time Temp Pulse Resp B/P (MAP) Pulse Ox O2 Delivery O2 Flow Rate FiO2 05/17/17 08:00 98.9 78 18 133/65 (87) 93 Room Air General Appearance: Alert, Oriented X3, Cooperative HEENT: Atraumatic Respiratory: Clear to Auscultation Cardiovascular: Regular Rate Abdominal: Normal Bowel Sounds, Soft Neuro: Normal Speech, Strength at 5/5 X4 Ext Psych/Mental Status: Mental Status NL, Mood NL Discharge Home Medications Reviewed and agree with Discharge Medication list on patient's Discharge Instruction sheet Condition at Discharge stable improving Instructions to Patient/Family Please see electronic discharge instructions given to patient. Clinical Quality Measures DVT/VTE Risk/Contraindication: VTE Present on Admission: Yes Risk Factor Score Per Nursin RFS Level Per Nursing on Admit: 4+=Very High YASSINE FRENCH MD May 17, 2017 12:35
== END 2017-05-17 13:20 | disposition home or self-care (01) | DRG 299 ==
LOC: ICU 14:12 → 4TH 05-16 12:40
PROVIDERS: ADMIT Family Medicine; ATTEND Family Medicine
DX: I82.431 Acute embolism and thrombosis of right popliteal vein (principal); I26.99 Other pulmonary embolism without acute cor pulmonale; N17.9 Acute kidney failure, unspecified; I10 Essential (primary) hypertension; F32.9 Major depressive disorder, single episode, unspecified; E66.9 Obesity, unspecified; F34.1 Dysthymic disorder; G47.33 Obstructive sleep apnea (adult) (pediatric); J44.9 Chronic obstructive pulmonary disease, unspecified; Z68.39 Body mass index [BMI] 39.0-39.9, adult; Z79.01 Long term (current) use of anticoagulants
CPT/HCPCS: 36415; 71045; 80053; 80069; 81241; 83605; 85007; 85025; 85027; 85610; 85730; 87040; 87081; 87088; 87804; 93005; 93306; 93970

== ENCOUNTER → 2017-06-12 | Outpatient (CLI) | payer BC ==
[~2017-06-12] MED LIST changes: +APIX5TAB PO; +HYDR-3812 PO; +RIVA15TA PO; +RT-ALBUTEROL SULF 2.5 MG/3 ML PRE-MIX VIAL INH ONE
== END ==
LOC: RT 11:38
PROVIDERS: ATTEND Nurse Practitioner Family
DX: J45.909 Unspecified asthma, uncomplicated (principal); I26.99 Other pulmonary embolism without acute cor pulmonale
CPT/HCPCS: 94060; 94726; 94729

== ENCOUNTER → 2017-06-23 | Outpatient (CLI) | payer BC ==
[~2017-06-23] MED LIST changes: -RT-ALBUTEROL SULF 2.5 MG/3 ML PRE-MIX VIAL INH ONE
--- NOTE | 2017-06-23 18:38 | Diagnostic Imaging Report ---
INDICATION: Right leg pain. History of DVT. COMPARISON: 05/16/2017 TECHNIQUE: Duplex, lewis-scale and color-flow imaging of the right lower extremity venous system was performed. FINDINGS: Since the previous exam, there has been interval improvement in DVT burden of the right lower extremity. There is residual occlusive thrombus within the popliteal vein. There has, however, been interval resolution of DVT from the superficial femoral vein. The common femoral vein and profunda femoral vein continue to have a normal appearance. The deep calf veins, although not well visualized show no distinct evidence of intraluminal thrombosis. Focused sonographic evaluation of the patient's area of concern demonstrates soft tissue edema. IMPRESSION: 1. Persistent, although improved DVT in the right lower extremity. 2. Soft tissue edema of the right calf. Dictated by: Dictated on workstation # [id number]
== END ==
LOC: RAD 16:04
PROVIDERS: ATTEND Family Medicine
DX: I82.401 Acute embolism and thrombosis of unspecified deep veins of right lower extremity (principal)

== ENCOUNTER → 2017-10-16 | Outpatient (CLI) | payer BC ==
[2017-10-16 14:50] LABS: BASOPHILS # (AUTO) 0.1 10^3/uL (0.0-0.1); BASOPHILS % (AUTO) 1 % (0-10); EOSINOPHILS # (AUTO) 0.3 10^3/uL (0.0-0.3); EOSINOPHILS % (AUTO) 3 % (0-10); HEMATOCRIT 44 % (40-54); LYMPHOCYTES # (AUTO) 1.9 X 10^3 (1.0-4.0); LYMPHOCYTES % (AUTO) 20 % (12-44); MEAN CORPUSCULAR HEMOGLOBIN 30 PG (25-34); MEAN CORPUSCULAR HGB CONC 34 G/DL (32-36); MEAN CORPUSCULAR VOLUME 89 FL (80-99); MEAN PLATELET VOLUME 9.9 FL (7.4-10.4); MONOCYTES # (AUTO) 1.1 X 10^3 (0.0-1.0); MONOCYTES % (AUTO) 11 % (0-12); NEUTROPHILS # (AUTO) 6.3 X 10^3 (1.8-7.8); NEUTROPHILS % (AUTO) 65 % (42-75); PLATELET COUNT 249 10^3/uL (130-400); RED BLOOD COUNT 4.96 10^6/uL (4.35-5.85); RED CELL DISTRIBUTION WIDTH 14.3 % (10.0-14.5); WHITE BLOOD COUNT 9.6 10^3/uL (4.3-11.0)
[2017-10-16 15:10] LABS: ALBUMIN 4.1 GM/DL (3.2-4.5); BILIRUBIN,TOTAL 0.4 MG/DL (0.1-1.0); CALCIUM 9.2 MG/DL (8.5-10.1); CREATININE SERUM 1.8 MG/DL (0.60-1.30); POTASSIUM 4.2 MMOL/L (3.6-5.0); TOTAL PROTEIN 6.8 GM/DL (6.4-8.2)
== END ==
LOC: LAB 14:30
PROVIDERS: ATTEND Nurse Practitioner Family
DX: I26.99 Other pulmonary embolism without acute cor pulmonale (principal)
CPT/HCPCS: 36415; 80053; 85025; 85379

== ENCOUNTER 2018-05-05 15:32 | Emergency (ER) | payer BC ==
[~2018-05-05] VITALS: Ht 180.3 cm; Wt 124.7 kg
--- NOTE | 2018-05-05 15:43 | ED Lower Extremity ---
General Stated Complaint: R LEG BACK OF KNEE REDNESS/SWELLING Source: patient Exam Limitations: no limitations History of Present Illness Date Seen by Provider: May 05, 2018 Time Seen by Provider: 15:41 Initial Comments To ER with reports of pain to the posterior right knee since earlier today. No known injury. No shortness of breath or chest pain. Has had some "charley horses " to the right calf for the past few days. History of DVT/pulmonary embolism and was on anticoagulation but is not any longer. 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 No recent surgeries or other immobilization. Onset: just prior to arrival Severity: moderate Pain/Injury Location: right leg Method of Injury: unknown Modifying Factors: Worse With Movement Allergies and Home Medications Allergies Coded Allergies: NKANo Known Allergies (Verified Allergy, Unknown, 05/10/05) Uncoded Allergies: LACTOSE (Allergy, Unknown, 05/10/05) Home Medications Apixaban 5 Mg Tablet, 5 MG PO BID take 10mg (2 tabs) po BID for 6 days; then 5mg (1 tab) po BID thereafter. Prescribed by: YASSINE FRENCH on 05/17/17 1219 Clonidine HCl 0.1 Mg Tablet, 0.1 MG PO BID PRN for high blood pressures SBP> 150 Prescribed by: KIMBER BOATENG on 05/05/18 1708 Lisinopril 10 Mg Tablet, 10 MG PO DAILY, (Reported) Pantoprazole Sodium 40 Mg Tablet.dr, 40 MG PO HS, (Reported) LAST FILLED 04/11/17 #30 Sertraline HCl 100 Mg Tablet, 100 MG PO HS, (Reported) LAST FILLED 04/11/17 #30 Patient Home Medication List Home Medication List Reviewed: Yes Review of Systems Constitutional: see HPI EENTM: see HPI Respiratory: no symptoms reported Cardiovascular: no symptoms reported Genitourinary: no symptoms reported Musculoskeletal: see HPI Skin: no symptoms reported Psychiatric/Neurological: No Symptoms Reported Past Hvblhih-Caxdum-Zjvxus Hx Patient Social History Type Used: Smokeless Tobacco Recent Foreign Travel: No Contact w/Someone Who Travel: No Recent Hopitalizations: Yes Immunizations Up To Date Tetanus Booster (TDap): Unknown Date of Pneumonia Vaccine: Dec 05, 2007 Date of Influenza Vaccine: Dec 04, 2016 Seasonal Allergies Seasonal Allergies: Yes Past Medical History Surgeries: Yes Orthopedic Respiratory: Yes Asthma, Pulmonary Embolism, Sleep Apnea Cardiac: No Neurological: No Genitourinary: No Gastrointestinal: Yes (esophageal ulcer, ) Gastroesophageal Reflux, Hiatal Hernia, Ulcer Musculoskeletal: No Endocrine: No HEENT: No Cancer: Yes Skin Psychosocial: No Integumentary: No Blood Disorders: No Adverse Reaction/Blood Tranf: No Family Medical History No Pertinent Family Hx Physical Exam Vital Signs Vital Signs - First Documented 05/05/18 15:40 Temp 97.9 Pulse 92 Resp 18 B/P (MAP) 177/97 (123) Pulse Ox 96 Capillary Refill : Height, Weight, BMI Height: 5'11.00" Weight: 286lbs. 5.0oz. 129.953403iu; 39.7 BMI Method:Stated General Appearance: WD/WN, no apparent distress HEENT: PERRL/EOMI, normal ENT inspection Respiratory: no respiratory distress, no accessory muscle use Hips: bilateral hip non-tender, bilateral hip normal inspection, bilateral hip normal range of motion Legs: right leg soft tissue tenderness, right leg swelling, right leg other ( there is no erythema. The right Does measure about 1 inch larger circumferentially than the left at the same location midcalf) Knees: bilateral knee non-tender, bilateral knee normal inspection, bilateral knee normal range of motion Ankles: bilateral ankle non-tender, bilateral ankle normal inspection, bilateral ankle normal range of motion Feet: bilateral foot non-tender, bilateral foot normal inspection, bilateral foot normal range of motion Neurologic/Psychiatric: alert, normal mood/affect, oriented x 3 Skin: normal color, warm/dry Progress/Results/Core Measures Results/Orders Lab Results Laboratory Tests Test 05/05/18 16:03 Range/Units White Blood Count 9.9 4.3-11.0 10^3/uL Red Blood Count 4.88 4.35-5.85 10^6/uL Hemoglobin 14.4 13.3-17.7 G/DL Hematocrit 44 40-54 % Mean Corpuscular Volume 89 80-99 FL Mean Corpuscular Hemoglobin 30 25-34 PG Mean Corpuscular Hemoglobin Concent 33 32-36 G/DL Red Cell Distribution Width 14.5 10.0-14.5 % Platelet Count 225 130-400 10^3/uL Mean Platelet Volume 9.8 7.4-10.4 FL Neutrophils (%) (Auto) 66 42-75 % Lymphocytes (%) (Auto) 19 12-44 % Monocytes (%) (Auto) 11 0-12 % Eosinophils (%) (Auto) 4 0-10 % Basophils (%) (Auto) 1 0-10 % Neutrophils # (Auto) 6.6 1.8-7.8 X 10^3 Lymphocytes # (Auto) 1.9 1.0-4.0 X 10^3 Monocytes # (Auto) 1.1 H 0.0-1.0 X 10^3 Eosinophils # (Auto) 0.4 H 0.0-0.3 10^3/uL Basophils # (Auto) 0.1 0.0-0.1 10^3/uL Sodium Level 141 135-145 MMOL/L Potassium Level 3.7 3.6-5.0 MMOL/L Chloride Level 107 98-107 MMOL/L Carbon Dioxide Level 23 21-32 MMOL/L Anion Gap 11 5-14 MMOL/L Blood Urea Nitrogen 19 H 7-18 MG/DL Creatinine 1.84 H 0.60-1.30 MG/DL Estimat Glomerular Filtration Rate 39 BUN/Creatinine Ratio 10 Glucose Level 115 H 70-105 MG/DL Calcium Level 8.5 8.5-10.1 MG/DL My Orders Orders - KIMBER BOATENG APRN Cbc With Automated Diff (05/05/18 15:44) Basic Metabolic Panel (05/05/18 15:44) Vital Signs/I&O 05/05/18 05/05/18 15:40 17:05 Temp 97.9 Pulse 92 88 Resp 18 18 B/P (MAP) 177/97 (123) 175/105 (128) Pulse Ox 96 100 Progress Progress Note : Progress Note [facility] REC#: [id number] PT STATUS: REG ER : 1965 PHYSICIAN: PRISCILLA ADLER MD ADMIT DATE: 05/05/18/ER Draft Date of Exam:05/05/18 US VENOUS LOWER EXT RT PROCEDURE: US right lower extremity venous. TECHNIQUE: Multiple real-time grayscale images were obtained over the right lower extremity in various projections. Additional spectral analysis and color Doppler duplex images were also obtained. INDICATION: Right leg pain. FINDINGS: There is normal compression, flow and augmentation from the right common femoral vein through the popliteal vein. The visualized calf veins are also patent. IMPRESSION: No sonographic evidence of right lower extremity deep venous thrombosis. Dictated on workstation # [id number] Dict: 05/05/18 1634 Trans: 05/05/18 1636 [facility] [id number] Interpreted by: LAURITA TOPETE MD Electronically signed by: Departure Communication (Admissions) 6539- blood pressure is elevated on arrival at 180/94. Rechecked at discharge and still found to be 174/107. Discussed the need for follow-up with primary care. This elevated blood pressure greatly concerned . We'll give a prescription for clonidine 0.1 milligrams by mouth every 12 hours when necessary systolic blood pressure greater than 150 he will follow-up with Dr. French next week. Advised her that if home blood pressure readings are also elevated he may be prescribed additional blood pressure lowering medications. 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 Decision time for Depature: 16:45 Referrals: YASSINE FRENCH MD (PCP/Family) Primary Care Physician Patient Instructions: Knee Pain Add. Discharge Instructions: 1. Return to ER for any concerns 2. Follow-up with Dr. French next week 3. Scripts Clonidine HCl (Clonidine HCl) 0.1 Mg Tablet 0.1 MG PO BID PRN for high blood pressures SBP> 150, #10 TAB Prov: KIMBER BOATENG APRN 05/05/18 Copy Copies To 1: YASSINE FRENCH MD, PETER J APRN May 05, 2018 15:43
[2018-05-05 16:12] LABS: BASOPHILS # (AUTO) 0.1 10^3/uL (0.0-0.1); BASOPHILS % (AUTO) 1 % (0-10); EOSINOPHILS # (AUTO) 0.4 10^3/uL (0.0-0.3); EOSINOPHILS % (AUTO) 4 % (0-10); HEMATOCRIT 44 % (40-54); HEMOGLOBIN 14.4 G/DL (13.3-17.7); LYMPHOCYTES # (AUTO) 1.9 X 10^3 (1.0-4.0); LYMPHOCYTES % (AUTO) 19 % (12-44); MEAN CORPUSCULAR HEMOGLOBIN 30 PG (25-34); MEAN CORPUSCULAR HGB CONC 33 G/DL (32-36); MEAN CORPUSCULAR VOLUME 89 FL (80-99); MEAN PLATELET VOLUME 9.8 FL (7.4-10.4); MONOCYTES # (AUTO) 1.1 X 10^3 (0.0-1.0); MONOCYTES % (AUTO) 11 % (0-12); NEUTROPHILS # (AUTO) 6.6 X 10^3 (1.8-7.8); NEUTROPHILS % (AUTO) 66 % (42-75); PLATELET COUNT 225 10^3/uL (130-400); RED CELL DISTRIBUTION WIDTH 14.5 % (10.0-14.5); WHITE BLOOD COUNT 9.9 10^3/uL (4.3-11.0)
[2018-05-05] MEDS ORDERED: LISI10TA2 PO (16:15)
[2018-05-05 16:26] LABS: CALCIUM 8.5 MG/DL (8.5-10.1); CREATININE SERUM 1.84 MG/DL (0.60-1.30); POTASSIUM 3.7 MMOL/L (3.6-5.0)
--- NOTE | 2018-05-05 16:36 | Diagnostic Imaging Report ---
PROCEDURE: US right lower extremity venous. TECHNIQUE: Multiple real-time grayscale images were obtained over the right lower extremity in various projections. Additional spectral analysis and color Doppler duplex images were also obtained. INDICATION: Right leg pain. FINDINGS: There is normal compression, flow and augmentation from the right common femoral vein through the popliteal vein. The visualized calf veins are also patent. IMPRESSION: No sonographic evidence of right lower extremity deep venous thrombosis. Dictated by: Dictated on workstation # [id number]
[2018-05-05 17:05] VITALS: BP 175/105
[2018-05-05] MEDS ORDERED: CLON0.1T PO (17:08)
== END 2018-05-05 17:05 | disposition home or self-care (01) ==
LOC: EDUNIT# 15:32 → ER 15:34
DX: M25.561 Pain in right knee (principal); N18.9 Chronic kidney disease, unspecified; J45.909 Unspecified asthma, uncomplicated; G47.30 Sleep apnea, unspecified; K21.9 Gastro-esophageal reflux disease without esophagitis; Z87.19 Personal history of other diseases of the digestive system; Z85.828 Personal history of other malignant neoplasm of skin; Z79.01 Long term (current) use of anticoagulants; Z86.718 Personal history of other venous thrombosis and embolism; Z86.711 Personal history of pulmonary embolism
CPT/HCPCS: 36415; 80048; 85025

== ENCOUNTER → 2018-07-17 | Outpatient (CLI) | payer BC ==
[~2018-07-17] MED LIST changes: +CLON0.1T PO; +LISI10TA2 PO; -RIVA15TA PO; +RIVA15TA2 PO
--- NOTE | 2018-07-17 13:18 | Diagnostic Imaging Report ---
PROCEDURE: US Renal Bilateral. INDICATION: Chronic renal disease, anemia. TECHNIQUE: Multiple real-time grayscale sonographic images were obtained of the kidneys. COMPARISON: None FINDINGS: RIGHT KIDNEY: 10.0 x 5.5 x 6.0 cm. LEFT KIDNEY: 11.3 x 6.6 x 5.5 cm. The kidneys have an unremarkable appearance. There is relatively normal echotexture of the renal parenchyma. No hydronephrosis. URINARY BLADDER: Unremarkable in appearance. Bilateral ureteral jets are present. IMPRESSION: 1. Unremarkable renal sonogram. Dictated by: Dictated on workstation # [id number]
== END ==
LOC: RAD 08:36
PROVIDERS: ATTEND Internal Medicine Nephrology
DX: N18.3 Chronic kidney disease, stage 3 (moderate) (principal); D63.1 Anemia in chronic kidney disease
CPT/HCPCS: 76770

== ENCOUNTER → 2018-09-10 | Outpatient (CLI) | payer BC ==
--- NOTE | 2018-09-10 09:53 | Diagnostic Imaging Report ---
PROCEDURE: CT abdomen and pelvis without contrast. TECHNIQUE: Multiple contiguous axial images were obtained through the abdomen and pelvis without the use of intravenous contrast. Auto Exposure Controls were utilized during the CT exam to meet ALARA standards for radiation dose reduction. INDICATION: History of kidney stones now with difficulty urinating and pain. COMPARISON: No prior studies are available for comparison. FINDINGS: The lung bases are clear. No discrete liver mass is identified. The gallbladder is unremarkable. There is no biliary ductal dilatation. The pancreas and spleen are unremarkable. No adrenal mass is identified. No definite renal calculi or hydronephrosis. There appear to be renal sinus cysts involving the left kidney. Aorta is nonaneurysmal. No central retroperitoneal or mesenteric lymphadenopathy is detected. Small and large bowel loops are normal in caliber. There is no ascites. The bladder and prostate are unremarkable. No pelvic lymphadenopathy is seen. Bony structures are unremarkable. IMPRESSION: Essentially unremarkable noncontrast CT of the abdomen and pelvis. No definite urinary tract calculi or obstruction is identified. Dictated by: Dictated on workstation # [id number]
== END ==
LOC: RAD 09:24
PROVIDERS: ATTEND Urology
DX: R10.9 Unspecified abdominal pain (principal); R39.198 Other difficulties with micturition; Z87.442 Personal history of urinary calculi
CPT/HCPCS: 74176

== ENCOUNTER → 2020-10-14 | Outpatient (CLI) | payer BC ==
[~2020-10-14] MED LIST changes: +ACHD5005 PO; +CLN.1T PO; -CLON0.1T PO; -HYDR-3812 PO; -LISI10TA2 PO; +LISI10TA25 PO; -PANT40TA3 PO; +PANT40TA52 PO; +SERT-414 PO; -SERT100T8 PO
--- NOTE | 2020-10-14 15:46 | Diagnostic Imaging Report ---
PROCEDURE: US left lower extremity venous. TECHNIQUE: Multiple real-time grayscale images were obtained over the left lower extremity in various projections. Additional duplex Doppler and color Doppler images were also obtained. INDICATION: Left leg pain. FINDINGS: There is normal flow present within the left common femoral vein; however, there is occlusive thrombus throughout the left superficial femoral and popliteal veins, which extends into the calf veins. IMPRESSION: Extensive deep venous thrombus throughout the left superficial femoral and popliteal veins as well as the visualized calf veins. Dictated by: Dictated on workstation # [id number]
== END ==
LOC: RAD 15:00
PROVIDERS: ATTEND Internal Medicine
DX: I82.412 Acute embolism and thrombosis of left femoral vein (principal); I82.432 Acute embolism and thrombosis of left popliteal vein; I82.4Z2 Acute embolism and thrombosis of unspecified deep veins of left distal lower extremity

== ENCOUNTER → 2020-11-03 | Outpatient (CLI) | payer BC | LOC: CARD 09:30 | PROVIDERS: ATTEND Physician Assistant | DX: I11.9 Hypertensive heart disease without heart failure (principal); I25.10 Atherosclerotic heart disease of native coronary artery without angina pectoris | CPT/HCPCS: 93306 ==

== ENCOUNTER → 2020-12-16 | Outpatient (CLI) | payer BC ==
[~2020-12-16] VITALS: Ht 180 cm; Wt 122.0 kg
[~2020-12-16] MED LIST changes: +CATHETER FLUSH 10 ML SYR IV PRN; +REGADENOSON 0.4 MG/5 ML SYR (LEXISCAN) IV ONE
[2020-12-16 09:07] VITALS: BP 160/101
--- NOTE | 2020-12-16 12:39 | Cardiology Stress Test Report ---
Stress Test Report Date of Procedure/Referring: Date of Procedure: Dec 16, 2020 Caitlin Strange Admitting Physician Chirag Morales MD Indications: HTN Baseline Heart Rate: 58 Baseline Blood Pressure: Blood Pressure Systolic: 160 Blood Pressure Diastolic: 101 Baseline Vitals Vital Signs Date Time Temp Pulse Resp B/P (MAP) Pulse Ox O2 Delivery O2 Flow Rate FiO2 12/16/20 09:07 61 18 160/101 (120) 97 Room Air Baseline EKG: Baseline EKG: NSR Summary After explaining the procedure to the patient, he signed a consent and then brought to the stress nuclear laboratory. Patient received 0.4 mg Lexiscan for stress test, ECG, heart rate and blood pressure were monitored continuously. Resting and stress dose of radio tracer were injected, imaging was acquired and reviewed in short axis, horizontal long axis and vertical long axis views. TID: 1.04 SSS: 3 SDS: 3 EF: 59 1. Patient tolerated Lexiscan well 2. Baseline hypertension with blood pressure 160/101 persisted during test 3. Diaphragmatic attenuation with mild ischemia involving the mid to apical inferior wall true apex and anterior apical segment 4. Normal left ventricular size, ejection fraction 59% CARLOS SALDAÑA MD Dec 16, 2020 12:39
== END ==
LOC: CARD 07:45
PROVIDERS: ATTEND Physician Assistant
DX: I10 Essential (primary) hypertension (principal); I25.10 Atherosclerotic heart disease of native coronary artery without angina pectoris
CPT/HCPCS: 78452; 93017; A9502

== ENCOUNTER 2020-12-30 10:00 | Day surgery (SDC) | payer BC ==
[2020-12-30] VITALS (12 sets, daily range): BP systolic 92–133; BP diastolic 65–81
[~2020-12-30] VITALS: Ht 180.3 cm; Wt 125.2 kg
[2020-12-30 08:26] LABS: HEMATOCRIT 50 % (40-54); HEMOGLOBIN 16.4 g/dL (13.3-17.7); MEAN CORPUSCULAR HEMOGLOBIN 30 pg (25-34); MEAN CORPUSCULAR HGB CONC 33 g/dL (32-36); MEAN CORPUSCULAR VOLUME 92 fL (80-99); MEAN PLATELET VOLUME 9.5 fL (9.0-12.2); PLATELET COUNT 243 10^3/uL (130-400); WHITE BLOOD COUNT 7.5 10^3/uL (4.3-11.0)
[2020-12-30 08:33] LABS: POTASSIUM 4.5 MMOL/L (3.6-5.0)
--- NOTE | 2020-12-30 08:33 | Diagnostic Imaging Report ---
EXAMINATION: Chest, 1 view. HISTORY: Abn stress, htn. COMPARISON: 05/15/2017. FINDINGS: Heart size and pulmonary vasculature are normal. The lungs are clear without consolidation, pleural effusion, or pneumothorax. The osseous structures are intact. IMPRESSION: No acute radiographic abnormality in the chest. Dictated by: Dictated on workstation # [id number]
[2020-12-30 08:35] LABS: CALCIUM 9.2 MG/DL (8.5-10.1)
[2020-12-30 08:36] LABS: TOTAL PROTEIN 7.1 GM/DL (6.4-8.2)
[2020-12-30 08:38] LABS: BILIRUBIN,TOTAL 0.5 MG/DL (0.1-1.0)
[2020-12-30 08:39] LABS: CREATININE SERUM 2.16 MG/DL (0.60-1.30)
[~2020-12-30 10:00] MED LIST changes: +ACET325T38 PO; -CATHETER FLUSH 10 ML SYR IV PRN; +CHOL500044 PO; +FAMO10TA43 PO; +HEParin (CATH LAB) 2,000 ML IV ONE; +LIDOCAINE 1% INJ 20 ML 20 ML VIAL ONE; +MTP25TSR PO; +NS IV 1000 ML 1,000 ML IV SCH; +NS IV 1000 ML 1,000 ML ONE; -REGADENOSON 0.4 MG/5 ML SYR (LEXISCAN) IV ONE
--- NOTE | 2020-12-30 10:09 | Conscious Sedation/ASA ---
Conscious Sedation Pre-Proced Time 10:09 ASA Score 3 For ASA 3 and 4: Consider anesthesia and medical clearance. Also, for patients with a history of failed moderate sedation consider anesthesia. Airway Lungs Heart ASA score ASA 1: a normal healthy patient ASA 2: a patient with a mild systemic disease (mid diabetes, controlled hypertension, obesity x ASA 3: a patient with a severe systemic disease that limits activity (angina, COPD, prior Myocardial infarction) ASA 4: a patient with an incapacitating disease that is a constant threat to life (CHF, renal failure) ASA 5: a moribund patient not expected to survive 24 hrs. (ruptured aneurysm) ASA 6: a declared brain- patient whose organs are being harvested. For emergent operations, add the letter E after the classification Mallampati Classification Grade 3 Sedation Plan Analgesia, Amnesia, Plan communicated to team members, Discussed options with patient/fam, Discussed risks with patient/fam The patient is an appropriate candidate to undergo the planned procedure, sedation, and anesthesia. The patient immediately re-assessed prior to indication. CARLOS SALDAÑA MD Dec 30, 2020 10:09
[2020-12-30] MEDS ORDERED: MIDAZOLAM 5 MG/5 ML (VERSED) VIAL ONE (10:16)
[2020-12-30] MEDS ORDERED: fentaNYL INJ 100 MCG/2 ML AMP ONE (10:16)
[2020-12-30] MEDS ORDERED: HEParin 1000 UNIT/ML (10ML VIAL) FOR BOLUS ONE (10:16)
[2020-12-30] MEDS ORDERED: VERAPAMIL 5 MG/2 ML (CALAN) VIAL IV ONE (10:16)
[2020-12-30] MEDS ORDERED: NITRO DRIP 25000 MCG/D5W 250 ML IV ONE (10:17)
[2020-12-30] MEDS ORDERED: NS IV 1000 ML 1,000 ML ONE (10:55)
--- NOTE | 2020-12-30 11:06 | Cardiac Cath Report ---
Cardiac Cath Report Physician (s)/Herbicide Sprayer (s) Physician CARLOS SALDAÑA MD Pre-Procedure Diagnosis Pre-Procedure Diagnosis: Coronary artery disease Post-Procedure Note Procedure Start Date: Dec 30, 2020 Name of Procedure: Left heart catheterization Findings/Procedure Note PROCEDURE NOTE: 55 years old gentleman with history of renal insufficiency, hypertension hyperlipidemia, had an abnormal stress test, scheduled for cardiac catheterization possible PTCA. After explaining the procedure to the patient, all pros and cons were explained, all questions were answered. The patient signed the consent and then he was placed on the cardiac catheterization laboratory. Groin was prepped SL fashion local anesthesia was used. Sheath placed in the right radial artery, [place] catheter was advanced to the left ventricular cavity, pressure was measured, pullback LV to aorta was done, engaged the right and left coronary system, using very small amount of contrast I was able to visualize his coronary system. Total contrast was used is 17 mL. At the end of the procedure the catheter was retracted At the end of the procedure the sheath was removed. Vascular band deployed FINDINGS: Hemodynamics LV 93/21, end-diastolic pressure of 21 Aorta 81/57 mean of 65 ANATOMY: Left Main is free of obstructive disease Left Anterior Descending is slightly tortuous with slow flow in the LAD probably due to small vessel disease Left Circumflex has no significant obstructive disease Right Coronary Artery is slightly tortuous with slow flow probably due to small vessel disease LV Gram was not done, pressure was measured CONCLUSION: 1. Slow flow with large coronary system probably due to small vessel disease, nonobstructive disease 2. Mildly elevated left ventricular end-diastolic pressure DISCUSSION AND RECOMMENDATION: Continue with maximizing medical therapy, no intervention is needed. Anesthesia Type: Conscious Sedation Estimated blood loss (mL): 10 ml Contrast Amount: 17 ml Total Radiation Dose: 454 mGy Post-Procedure Diagnosis Post-operative diagnosis: Chest pain Coronary artery disease Hypertension Hyperlipidemia CARLOS SALDAÑA MD Dec 30, 2020 11:06
[2020-12-30] MEDS ORDERED: NS IV 1000 ML 1,000 ML IV SCH (11:15)
--- NOTE | 2020-12-30 11:19 | Discharge Inst-Post CATH ---
Discharge Inst-CATH/EP Problems Reviewed?: Yes Post Cardiac Cath/EP D/C Inst Follow Up/Plan Appointment with Dr. Goldman's office in 2 to 4 weeks <b>CARDIAC CATH/EP PROCEDURE DISCHARGE INSTRUCTIONS</b> ACTIVITY * Go Home directly and rest. * Limit activity of the leg (or wrist if it was used) for 7 days including aer obics, swimming, jogging, bicycling, etc. * Restrict stair-climbing for 7 days if possible, if not, climb up with your non-cath leg, then bring together on the same step. * Avoid lifting, pushing, pulling or excessive movement of the affected extremi ty for 7 days. * Customary sexual activity may be resumed after 2 days-use caution not to use a position that strains or causes pain to the affected extremity. * No driving for 24 hours. * NO SMOKING. * Avoid straining for bowel movements for 7 days. * Gentle walking on level ground is allowed. * Returning to work will depend on the type of procedure and the results. Your doctor will discuss this with you. CALL YOUR DOCTOR FOR ANY OF THE FOLLOWING: *If bleeding from the puncture site occurs- Apply gentle pressure to site with clean cloth and call your doctor or EMS. * If a knot or lump forms under the skin, increases in size, or causes pain. * If bruising appears to be worsening or moving further down your leg instead of disappearing. * Temperature above 101 F. CARE OF YOUR GROIN INCISION; * Bruising or purple discoloration of the skin near the puncture site is common. * You may shower only, no bathtub bathing for 5 days. Be careful to avoid slipping as your leg may feel stiff. * If a closure device was used on your femoral artery, please see the attached guide regarding care of the device and your leg. * Leave dressing on FOR 24 hours. CARE OF YOUR WRIST INCISION; * Bruising or purple discoloration of the skin near the puncture site is common. * You may shower. * DO NOT submerge wrist. * Leave dressing on FOR 24 hours. CARLOS GOLDMAN MD Dec 30, 2020 11:19
== END 2020-12-30 14:15 | disposition home or self-care (01) ==
LOC: CATH 10:00 → SDC 11:21 → CATH 14:15
PROVIDERS: ATTEND Internal Medicine Cardiovascular Disease
DX: I25.10 Atherosclerotic heart disease of native coronary artery without angina pectoris (principal); I12.9 Hypertensive chronic kidney disease with stage 1 through stage 4 chronic kidney disease, or unspecified chronic kidney disease; I65.23 Occlusion and stenosis of bilateral carotid arteries; E78.2 Mixed hyperlipidemia; N18.30 Chronic kidney disease, stage 3 unspecified; E66.9 Obesity, unspecified; J44.9 Chronic obstructive pulmonary disease, unspecified; G47.33 Obstructive sleep apnea (adult) (pediatric); F32.9 Major depressive disorder, single episode, unspecified; Z79.01 Long term (current) use of anticoagulants; Z79.899 Other long term (current) drug therapy; Z87.891 Personal history of nicotine dependence; Z86.718 Personal history of other venous thrombosis and embolism; Z68.39 Body mass index [BMI] 39.0-39.9, adult; Z99.89 Dependence on other enabling machines and devices
CPT/HCPCS: 71045; 80053; 80061; 85027; 85610; 85730; 87081; 93458; C1894; 36415

== ENCOUNTER 2021-03-16 18:16 | Emergency (ER) | payer BC ==
[~2021-03-16] VITALS: Ht 180 cm; Wt 124.0 kg
[~2021-03-16 18:16] MED LIST changes: -HEParin (CATH LAB) 2,000 ML IV ONE; -LIDOCAINE 1% INJ 20 ML 20 ML VIAL ONE; -NS IV 1000 ML 1,000 ML IV SCH; -NS IV 1000 ML 1,000 ML ONE
--- NOTE | 2021-03-16 20:56 | ED Lower Extremity ---
General Chief Complaint: Lower Extremity Stated Complaint: PAIN LEFT FOOT/IRR LAB RESULTS Nursing Triage Note: PT AMB TO ER WITH C/O ABNORMAL LAB VALUES MAR 3 AND DE3. PT SAID HIS KIDNEY SPECALIST AT THINKS HIS L FOOT IS SEPTIC DUE TO THE RENAL LABS. PT STATES TOP OF FOOT TO BIG TOE HURTS Source: patient Exam Limitations: no limitations (KIMBER BOATENG APRN) History of Present Illness Date Seen by Provider: Mar 16, 2021 Time Seen by Provider: 20:54 Initial Comments To ER with reports of abnormal labs. He has chronic kidney disease. He had a GFR of 30 on 03/05/2021 during an ER visit at [facility] for gout. He was given an unknown medication for couple of days. He had a recheck of his GFR and found to be 26 on 03/09/2021. He follows with a rn building who was concerned that perhaps this was not gout and was actually a septic joint he states. He presents today for that. The left great toe, the site of his initial pain is still a bit red but overall feeling better. Onset: other Severity: moderate Pain/Injury Location: left 1st toe Method of Injury: unknown Modifying Factors: Worse With Movement (KIMBER BOATENG APRN) Allergies and Home Medications Allergies Coded Allergies: NKANo Known Allergies (Verified Allergy, Unknown, 05/10/05) Uncoded Allergies: LACTOSE (Allergy, Unknown, 05/10/05) Patient Home Medication List Home Medication List Reviewed: Yes (KIMBER BOATENG APRN) Acetaminophen (Tylenol) 325 Mg Tablet, 650 MG PO Q6H PRN for PAIN-MILD (1-4), (Reported) Entered as Reported by: SHERRIE DALY on 12/30/20848 Apixaban (Eliquis) 5 Mg Tablet, 5 MG PO BID, (Reported) Entered as Reported by: SHERRIE DALY on 12/30/20848 Cholecalciferol (Vitamin D3) (Vitamin D3) 125 Mcg Tablet, 125 MCG PO DAILY, (Reported) Entered as Reported by: SHERRIE DALY on 12/30/20848 Famotidine (Pepcid AC) 10 Mg Tablet, 10 MG PO DAILY PRN for HEARTBURN, (Reported) Entered as Reported by: SHERRIE DALY on 12/30/20848 Lisinopril (Lisinopril) 10 Mg Tablet, 10 MG PO DAILY, (Reported) Entered as Reported by: KISHAN DYSON on 05/05/18 1615 Metoprolol Succinate (Metoprolol Succinate) 25 Mg Tab.er.24h, 25 MG PO DAILY, (Reported) Entered as Reported by: SHERRIE DALY on 12/30/20 0849 Sertraline HCl (Sertraline HCl) 100 Mg Tablet, 100 MG PO DAILY, (Reported) Entered as Reported by: SONIA RODRIGUEZ on 08/06/16 1931 Review of Systems Constitutional: see HPI; No chills, No fever EENTM: see HPI Respiratory: no symptoms reported Cardiovascular: no symptoms reported Genitourinary: no symptoms reported Musculoskeletal: see HPI Skin: no symptoms reported Psychiatric/Neurological: No Symptoms Reported (KIMBER BOATENG APRN) Past Ywvtaww-Gvhitp-Ayxblf Hx Patient Social History Tobacco Use?: No Substance use?: No Alcohol Use?: No Pt feels they are or have been: No (KIMBER BOATENG APRN) Immunizations Up To Date Tetanus Booster (TDap): Unknown Influenza Vaccine Up-to-Date: No; Not Current First/Initial COVID19 Vaccinat: APR 2020 Second COVID19 Vaccination Eitan: MAY 2020 COVID19 Vaccine Wrinkle Chaser: DORIE (KIMBER BOATENG APRN) Seasonal Allergies Seasonal Allergies: Yes (KIMBER BOATENG APRN) Past Medical History Surgery/Hospitalization HX: GOUT Surgeries: Yes Orthopedic Respiratory: Yes Asthma, Sleep Apnea Currently Using CPAP: Yes Cardiac: No Hypertension, Palpitations Neurological: No Genitourinary: No Kidney Stones Gastrointestinal: Yes (esophageal ulcer, ) Gastroesophageal Reflux Musculoskeletal: No Endocrine: No HEENT: No Cancer: Yes Skin Psychosocial: No Integumentary: No Blood Disorders: No Adverse Reaction/Blood Tranf: No (KIMBER BOATENG APRN) Family Medical History No Pertinent Family Hx (KIMBER BOATENG APRN) Physical Exam Vital Signs Vital Signs - First Documented 03/16/21 19:59 Temp 35.9 Pulse 79 Resp 18 B/P (MAP) 164/96 (118) Pulse Ox 96 (NICO,ANNITA K DO) Vital Signs Capillary Refill : (KIMBER BOATENG APRN) Height, Weight, BMI Height: 5'11.00" Weight: 275lbs. 5.0oz. 124.988722lb; 38.00 BMI Method:Stated General Appearance: WD/WN, no apparent distress HEENT: PERRL/EOMI, normal ENT inspection Neck: non-tender, full range of motion Respiratory: no respiratory distress, no accessory muscle use Gastrointestinal: normal bowel sounds, non tender, soft Hips: bilateral hip non-tender, bilateral hip normal inspection, bilateral hip normal range of motion Legs: bilateral leg non-tender, bilateral leg normal inspection, bilateral leg normal range of motion Knees: bilateral knee non-tender, bilateral knee normal inspection, bilateral knee normal range of motion Ankles: bilateral ankle non-tender, bilateral ankle normal inspection, bilateral ankle normal range of motion Feet: left foot other (Mild erythema to the left first MTP joint. No open wound) Neurologic/Psychiatric: alert, normal mood/affect, oriented x 3 Skin: normal color, warm/dry (KIMBER BOATENG APRN) Progress/Results/Core Measures Results/Orders Lab Results Laboratory Tests Test 03/16/21 20:10 03/16/21 20:53 03/16/21 21:08 Range/Units White Blood Count 11.0 4.3-11.0 10^3/uL Red Blood Count 5.51 4.30-5.52 10^6/uL Hemoglobin 16.7 13.3-17.7 g/dL Hematocrit 52 40-54 % Mean Corpuscular Volume 94 80-99 fL Mean Corpuscular Hemoglobin 30 25-34 pg Mean Corpuscular Hemoglobin Concent 32 32-36 g/dL Red Cell Distribution Width 13.4 10.0-14.5 % Platelet Count 250 130-400 10^3/uL Mean Platelet Volume 10.2 9.0-12.2 fL Immature Granulocyte % (Auto) 0 % Neutrophils (%) (Auto) 60 42-75 % Lymphocytes (%) (Auto) 24 12-44 % Monocytes (%) (Auto) 9 0-12 % Eosinophils (%) (Auto) 5 0-10 % Basophils (%) (Auto) 1 0-10 % Neutrophils # (Auto) 6.6 1.8-7.8 10^3/uL Lymphocytes # (Auto) 2.7 1.0-4.0 10^3/uL Monocytes # (Auto) 1.0 0.0-1.0 10^3/uL Eosinophils # (Auto) 0.6 H 0.0-0.3 10^3/uL Basophils # (Auto) 0.1 0.0-0.1 10^3/uL Immature Granulocyte # (Auto) 0.0 0.0-0.1 10^3/uL Prothrombin Time 13.8 12.2-14.7 SEC INR Comment 1.0 0.8-1.4 Activated Partial Thromboplast Time 33 24-35 SEC Sodium Level 141 135-145 MMOL/L Potassium Level 4.7 3.6-5.0 MMOL/L Chloride Level 110 H 98-107 MMOL/L Carbon Dioxide Level 20 L 21-32 MMOL/L Anion Gap 11 5-14 MMOL/L Blood Urea Nitrogen 34 H 7-18 MG/DL Creatinine 2.07 H 0.60-1.30 MG/DL Estimat Glomerular Filtration Rate 33 BUN/Creatinine Ratio 16 Glucose Level 81 70-105 MG/DL Calcium Level 9.4 8.5-10.1 MG/DL Corrected Calcium 9.3 8.5-10.1 MG/DL Total Bilirubin 0.3 0.1-1.0 MG/DL Aspartate Amino Transf (AST/SGOT) 19 5-34 U/L Alanine Aminotransferase (ALT/SGPT) 20 0-55 U/L Alkaline Phosphatase 86 40-136 U/L Total Protein 7.3 6.4-8.2 GM/DL Albumin 4.1 3.2-4.5 GM/DL Urine Color YELLOW Urine Clarity CLEAR Urine pH 5.5 5-9 Urine Specific Marceline 1.025 H 1.016-1.022 Urine Protein TRACE H NEGATIVE Urine Glucose (UA) NEGATIVE NEGATIVE Urine Ketones NEGATIVE NEGATIVE Urine Nitrite NEGATIVE NEGATIVE Urine Bilirubin NEGATIVE NEGATIVE Urine Urobilinogen 0.2 < = 1.0 MG/DL Urine Leukocyte Esterase NEGATIVE NEGATIVE Urine RBC (Auto) 2+ H NEGATIVE Urine RBC 5-10 H /HPF Urine WBC NONE /HPF Urine Crystals NONE /LPF Urine Bacteria NEGATIVE /HPF Urine Casts NONE /LPF Urine Mucus SMALL H /LPF Urine Culture Indicated NO Lactic Acid Level 0.85 0.50-2.00 MMOL/L (KYREE WALSHA K DO) Micro Results Microbiology 03/16/21 Blood Culture - Preliminary, Resulted No growth 03/16/21 Blood Culture - Preliminary, Resulted No growth 03/16/21 Urine Culture - Final, Complete NO GROWTH (ANNITA WALSH DO) Vital Signs/I&O 03/16/21 03/16/21 19:59 21:34 Temp 35.9 35.9 Pulse 79 82 Resp 18 18 B/P (MAP) 164/96 (118) 154/97 Pulse Ox 96 97 (ANNITA WALSH DO) Blood Pressure Mean: 118 Departure Communication (Admissions) NAME: PIEDAD CHILDERS [facility] REC#: [id number] PT STATUS: REG ER : 1965 PHYSICIAN: KIMBER BOATENG APRN ADMIT DATE: 03/16/21/ER Draft Date of Exam:03/16/21 FOOT, LEFT, 3 VIEWS INDICATION: Left foot pain and swelling. COMPARISON: 01/01/2012. FINDINGS: Three views of the left foot demonstrate mild degenerative changes of the tarsal articulations. No neuropathic joint or bony erosion is seen. There is no fracture or dislocation. No foreign body or soft tissue gas is identified. IMPRESSION: Mild degenerative changes, primarily involving the tarsal articulations. Dictated on workstation # [id number] Dict: 03/16/212111 Trans: 03/16/212115 [facility] [id number] Interpreted by: JACQUIE SUNG Electronically signed by: (KIMBER BOATENG APRN) Impression Primary Impression: Gout Additional Impression: CKD (chronic kidney disease) Disposition: 01 HOME, SELF-CARE Condition: Stable Departure-Patient Inst. Decision time for Depature: 21:24 (KIMBER BOATENG APRN) Referrals: SUZANNE TEJADA DO (PCP/Family) Primary Care Physician Patient Instructions: Gout Add. Discharge Instructions: All discharge instructions reviewed with patient and/or family. Voiced understanding. ATTENDING PHYSICIAN NOTE: I WAS PHYSICALLY PRESENT ER PHYSICIAN WHEN THIS PATIENT WAS IN ER, BUT I WAS NOT INVOLVED IN ANY DECISION MAKING OR ANY CARE OF THIS PATIENT. (ANNITA WALSH DO) KIMBER BOATENG APRN Mar 16, 2021 20:56 ANNITA WALSH DO Mar 18, 2021 03:25
[2021-03-16 20:59] LABS: BASOPHILS # (AUTO) 0.1 10^3/uL (0.0-0.1); BASOPHILS % (AUTO) 1 % (0-10); EOSINOPHILS # (AUTO) 0.6 10^3/uL (0.0-0.3); EOSINOPHILS % (AUTO) 5 % (0-10); HEMATOCRIT 52 % (40-54); HEMOGLOBIN 16.7 g/dL (13.3-17.7); LYMPHOCYTES # (AUTO) 2.7 10^3/uL (1.0-4.0); LYMPHOCYTES % (AUTO) 24 % (12-44); MEAN CORPUSCULAR HEMOGLOBIN 30 pg (25-34); MEAN CORPUSCULAR HGB CONC 32 g/dL (32-36); MEAN CORPUSCULAR VOLUME 94 fL (80-99); MEAN PLATELET VOLUME 10.2 fL (9.0-12.2); MONOCYTES % (AUTO) 9 % (0-12); NEUTROPHILS # (AUTO) 6.6 10^3/uL (1.8-7.8); NEUTROPHILS % (AUTO) 60 % (42-75); PLATELET COUNT 250 10^3/uL (130-400)
[2021-03-16 21:00] LABS: ALBUMIN 4.1 GM/DL (3.2-4.5); BILIRUBIN,TOTAL 0.3 MG/DL (0.1-1.0); CALCIUM 9.4 MG/DL (8.5-10.1); CREATININE SERUM 2.07 MG/DL (0.60-1.30); POTASSIUM 4.7 MMOL/L (3.6-5.0); TOTAL PROTEIN 7.3 GM/DL (6.4-8.2)
[2021-03-16 21:04] LABS: BILIRUBIN,URINE NEGATIVE (NEGATIVE); CLARITY,URINE CLEAR; COLOR,URINE YELLOW; GLUCOSE, URINE (UA) NEGATIVE (NEGATIVE); KETONES,URINE NEGATIVE (NEGATIVE); LEUKOCYTE ESTERASE ,URINE NEGATIVE (NEGATIVE); NITRITE,URINE NEGATIVE (NEGATIVE); PH,URINE 5.5 (5-9); PROTEIN,URINE TRACE (NEGATIVE)
[2021-03-16 21:11] LABS: PROTHROMBIN TIME PATIENT 13.8 SEC (12.2-14.7)
--- NOTE | 2021-03-16 21:17 | Diagnostic Imaging Report ---
INDICATION: Left foot pain and swelling. COMPARISON: 01/01/2012. FINDINGS: Three views of the left foot demonstrate mild degenerative changes of the tarsal articulations. No neuropathic joint or bony erosion is seen. There is no fracture or dislocation. No foreign body or soft tissue gas is identified. IMPRESSION: Mild degenerative changes, primarily involving the tarsal articulations. Dictated by: Dictated on workstation # [id number]
[2021-03-16 21:28] LABS: BACTERIA,URINE NEGATIVE /HPF
[2021-03-16 21:34] VITALS: BP 154/97
== END 2021-03-16 21:36 | disposition home or self-care (01) ==
LOC: EDUNIT# 18:16 → ER 18:22
DX: M10.9 Gout, unspecified (principal); I12.9 Hypertensive chronic kidney disease with stage 1 through stage 4 chronic kidney disease, or unspecified chronic kidney disease; N18.9 Chronic kidney disease, unspecified; J45.909 Unspecified asthma, uncomplicated; Z79.899 Other long term (current) drug therapy
CPT/HCPCS: 36415; 73630; 80053; 81000; 83605; 85025; 85610; 85730; 87040; 87088

== ENCOUNTER 2021-04-01 08:47 | Outpatient (CLI) | payer BC ==
[~2021-04-01] VITALS: Ht 180.3 cm; Wt 124.7 kg
[2021-04-01 09:02] VITALS: BP 115/77
[2021-04-01] MEDS ORDERED: EPINEPHrine INJECTION 1 MG/ML AMP IM PRN (09:15)
[2021-04-01] MEDS ORDERED: diphenhydrAMINE 50 MG/ML INJ (BENADRYL) IV PRN (09:15)
[2021-04-01] MEDS ORDERED: ACETAMINOPHEN 500 MG TAB (TYLENOL) PO PRN (09:15)
[2021-04-01] MEDS ORDERED: SOTROVIMAB 500 MG/NS 50 ML IVPB IV ONE ×2 (09:15)
[2021-04-01] MEDS ORDERED: ONDANSETRON 4 MG/2 ML (SDV) Z0FRAN IV PRN (09:15)
[2021-04-01 10:23] VITALS: BP 118/66
== END 2021-04-01 10:45 ==
LOC: INFUSION 08:47
PROVIDERS: ATTEND Internal Medicine
DX: U07.1 COVID-19 (principal); N18.9 Chronic kidney disease, unspecified

== ENCOUNTER 2023-01-02 16:57 | Emergency (ER) | payer BC ==
[~2023-01-02] VITALS: Ht 180.3 cm; Wt 131.5 kg
--- NOTE | 2023-01-02 17:36 | ED Respiratory ---
General Chief Complaint: Cough/Cold/Flu Symptoms Stated Complaint: COUGHING MUCUS, CONGESTION Source: patient Exam Limitations: no limitations History of Present Illness Date Seen by Provider: Jan 02, 2023 Time Seen by Provider: 17:23 Initial Comments 57-year-old male presents to the ER with reports of a cough with occasional yellow phlegm since Monday and dryness in his chest. He reports his chest feels constricted when he tries to take a deep breath, denies any chest pain or pain with breathing. Does report some mild shortness of air after walking far distances. He had a COVID and flu test done today that were negative. He was seen at the [facility] and had chest x-ray that was negative. 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 States that this does not really feel the same as his previous pulmonary embolism. Denies fevers, chest pain, abdominal pain, nausea, vomiting, diarrhea. Denies any pain in his calves or leg swelling. Allergies and Home Medications Allergies Coded Allergies: NKANo Known Allergies (Verified Allergy, Unknown, 01/02/23) Uncoded Allergies: LACTOSE (Allergy, Unknown, 05/10/05) Patient Home Medication List Home Medication List Reviewed: Yes Acetaminophen (Tylenol) 325 Mg Tablet, 650 MG PO Q6H PRN for PAIN-MILD (1-4), (Reported) Entered as Reported by: SHERRIE DALY on 12/30/20 08 Apixaban (Eliquis) 5 Mg Tablet, 5 MG PO BID, (Reported) Entered as Reported by: SHERRIE DALY on 12/30/20848 Cholecalciferol (Vitamin D3) (Vitamin D3) 125 Mcg Tablet, 125 MCG PO DAILY, (Reported) Entered as Reported by: SHERRIE DALY on 12/30/20848 Famotidine (Pepcid AC) 10 Mg Tablet, 10 MG PO DAILY PRN for HEARTBURN, (Reported) Entered as Reported by: SHERRIE DALY on 12/30/20 08 Lisinopril (Lisinopril) 10 Mg Tablet, 10 MG PO DAILY, (Reported) Entered as Reported by: KISHAN DYSON on 05/05/18 1615 Metoprolol Succinate (Metoprolol Succinate) 25 Mg Tab.er.24h, 25 MG PO DAILY, (Reported) Entered as Reported by: SHERRIE DALY on 12/30/20 0849 Sertraline HCl (Sertraline HCl) 100 Mg Tablet, 100 MG PO DAILY, (Reported) Entered as Reported by: SONIA RODRIGUEZ on 08/06/161930 Review of Systems Review of Systems Constitutional: see HPI Past Onefvgd-Iwozba-Prqgbe Hx Patient Social History Tobacco Use?: No Use of E-Cig and/or Vaping dev: No Substance use?: No Alcohol Use?: No Immunizations Up To Date Tetanus Booster (TDap): Unknown First/Initial COVID19 Vaccinat: 3 SHOTS Second COVID19 Vaccination Eitan: MAY 2020 Seasonal Allergies Seasonal Allergies: Yes Past Medical History Surgery/Hospitalization HX: GOUT, HTN, ANXIETY, BLOOD CLOTS, CKD III Surgeries: Yes Orthopedic Respiratory: Yes Asthma, Sleep Apnea Currently Using CPAP: Yes Cardiac: No Hypertension, Palpitations Neurological: No Genitourinary: No Kidney Stones Gastrointestinal: Yes (esophageal ulcer, ) Gastroesophageal Reflux Musculoskeletal: No Endocrine: No HEENT: No Cancer: Yes Skin Psychosocial: No Integumentary: No Blood Disorders: No Adverse Reaction/Blood Tranf: No Family Medical History No Pertinent Family Hx Physical Exam Vital Signs - First Documented 01/02/23 17:05 Temp 37.1 Pulse 78 Resp 16 B/P (MAP) 161/101 (121) Pulse Ox 96 O2 Delivery Room Air Capillary Refill : Height: 5'11.00" Weight: 275lbs. 5.0oz. 124.639645we; 38.00 BMI Method:Stated General Appearance: WD/WN, no apparent distress Neck: supple, normal inspection Respiratory: lungs clear, normal breath sounds, no respiratory distress, no accessory muscle use Cardiovascular: regular rate, rhythm Extremities: normal range of motion, non-tender, normal inspection, no pedal edema, no calf tenderness Neurologic/Psychiatric: alert, normal mood/affect Skin: normal color, warm/dry Progress/Results/Core Measures Suspected Sepsis SIRS Temperature: Pulse: Respiratory Rate: Laboratory Tests 01/02/23 17:45: White Blood Count 12.0H Blood Pressure / Mean: Laboratory Tests 01/02/23 17:45: Creatinine 1.94H, INR Comment 1.0, Platelet Count 207, Total Bilirubin 0.3 Results/Orders Lab Results Laboratory Tests Test 01/02/23 17:45 Range/Units White Blood Count 12.0 H 4.3-11.0 10^3/uL Red Blood Count 5.58 H 4.30-5.52 10^6/uL Hemoglobin 16.9 13.3-17.7 g/dL Hematocrit 52 40-54 % Mean Corpuscular Volume 93 80-99 fL Mean Corpuscular Hemoglobin 30 25-34 pg Mean Corpuscular Hemoglobin Concent 33 32-36 g/dL Red Cell Distribution Width 12.9 10.0-14.5 % Platelet Count 207 130-400 10^3/uL Mean Platelet Volume 9.7 9.0-12.2 fL Immature Granulocyte % (Auto) 1 % Neutrophils (%) (Auto) 66 42-75 % Lymphocytes (%) (Auto) 16 12-44 % Monocytes (%) (Auto) 11 0-12 % Eosinophils (%) (Auto) 5 0-10 % Basophils (%) (Auto) 1 0-10 % Neutrophils # (Auto) 8.0 H 1.8-7.8 10^3/uL Lymphocytes # (Auto) 2.0 1.0-4.0 10^3/uL Monocytes # (Auto) 1.3 H 0.0-1.0 10^3/uL Eosinophils # (Auto) 0.7 H 0.0-0.3 10^3/uL Basophils # (Auto) 0.1 0.0-0.1 10^3/uL Immature Granulocyte # (Auto) 0.1 0.0-0.1 10^3/uL Prothrombin Time 13.3 12.2-14.7 SEC INR Comment 1.0 0.8-1.4 Activated Partial Thromboplast Time 29 24-35 SEC D-Dimer < 0.27 0.00-0.49 UG/ML Sodium Level 141 135-145 MMOL/L Potassium Level 4.5 3.6-5.0 MMOL/L Chloride Level 105 98-107 MMOL/L Carbon Dioxide Level 24 21-32 MMOL/L Anion Gap 12 5-14 MMOL/L Blood Urea Nitrogen 32 H 7-18 MG/DL Creatinine 1.94 H 0.60-1.30 MG/DL Estimat Glomerular Filtration Rate 39 BUN/Creatinine Ratio 16 Glucose Level 92 70-105 MG/DL Calcium Level 9.3 8.5-10.1 MG/DL Corrected Calcium 9.3 8.5-10.1 MG/DL Magnesium Level 1.9 1.6-2.4 MG/DL Total Bilirubin 0.3 0.1-1.0 MG/DL Aspartate Amino Transf (AST/SGOT) 14 5-34 U/L Alanine Aminotransferase (ALT/SGPT) 21 0-55 U/L Alkaline Phosphatase 85 40-136 U/L B-Type Natriuretic Peptide 42.3 <100.0 PG/ML Total Protein 6.9 6.4-8.2 GM/DL Albumin 4.0 3.2-4.5 GM/DL My Orders Orders - TERENCE FINN [employer] Cbc And Automated Diff (01/02/23 17:31) Magnesium (01/02/23 17:31) Chest 1 View, Ap/Pa Only (01/02/23 17:31) Ekg Tracing (01/02/23 17:31) Comprehensive Metabolic Panel (01/02/23 17:31) Protime With Inr (01/02/23 17:31) Partial Thromboplastin Time (01/02/23 17:31) Ed Iv/Invasive Line Start (01/02/23 17:31) Fibrin Degradation Products (01/02/23 17:31) Bnp Ashley (01/02/23 17:37) Vital Signs/I&O 01/02/23 01/02/23 01/02/23 17:05 17:05 18:59 Temp 37.1 Pulse 78 67 Resp 16 12 B/P (MAP) 161/101 (121) 143/84 Pulse Ox 96 96 O2 Delivery Room Air Room Air Room Air Capillary Refill : Progress Note : Progress Note Patient seen and evaluated, resting comfortably in bed, no distress. Based on exam and symptoms, work-up initiated including CBC, CMP, magnesium, coags, D- dimer, BNP, chest x-ray, EKG. 1855 Labs and chest x-ray reviewed. CBC shows mildly elevated RBC of 12.0. CMP shows BUN 32, creatinine 1.94, GFR 39, these are at baseline. Coags normal. D- dimer normal. Chest x-ray shows no acute abnormality. Due to normal D-dimer, I am not concerned for PE, patient also has a low Wells score of 1.5, due to previous PE and DVTs, which places him at a low risk. Results discussed with patient and . This is likely a URI. Patient instructed to follow-up with primary if symptoms are not improving. Patient is stable for discharge. Discharge instructions and return precautions provided. ECG Initial ECG Impression Date: Jan 02, 2023 Initial ECG Impression Time: 17:56 Initial ECG Rate: 68 Initial ECG Rhythm: Normal Sinus Initial ECG Intervals: Normal Initial ECG Impression: Normal Initial ECG Comparisson: Unchanged Diagnostic Imaging Diagonstic Imaging: Xray Plain Films/CT/US/NM/MRI: chest Comments [facility] [place] NAME: PIEDAD CHILDERS [facility] REC#: [id number] PT STATUS: REG ER : 1965 PHYSICIAN: TERENCE FINN APRN ADMIT DATE: 01/02/23/ER Signed Date of Exam:01/02/23 CHEST 1 VIEW, AP/PA ONLY EXAMINATION: Chest 1 view HISTORY: Chest pain COMPARISON: 12/30/2020. FINDINGS: Heart size and pulmonary vasculature are normal. The lungs are clear without consolidation, pleural effusion, or pneumothorax. Degenerative changes of the thoracic spine. Osseous structures are otherwise intact. IMPRESSION: 1. No acute radiographic abnormality in the chest. Dictated by: Dictated on workstation # [id number] Dict: 01/02/231835 Trans: 01/02/231840 AS6 [id number] Interpreted by: MARYANNE PADILLA DO Electronically signed by: MARYANNE PADILLA DO 01/02/231840 Departure Impression Primary Impression: Upper respiratory infection Disposition: 01 HOME, SELF-CARE Condition: Stable Departure-Patient Inst. Decision time for Depature: 18:55 Referrals: SUZANNE TEJADA DO (PCP/Family) Primary Care Physician Patient Instructions: Viral Upper Respiratory Infection, Adult (DC) Add. Discharge Instructions: Follow-up with primary care provider if symptoms continue. Return for severe shortness of breath, chest pain, or any other new, concerning, or worsening symptoms. All discharge instructions reviewed with patient and/or family. Voiced understanding. Work/School Note: Work Release Form Date Seen in the Emergency Department: Jan 02, 2023 Return to Work: Jan 04, 2023 Restrictions: No Restrictions TERENCE FINN APRN Jan 02, 2023 17:36
[2023-01-02 17:52] LABS: BASOPHILS # (AUTO) 0.1 10^3/uL (0.0-0.1); BASOPHILS % (AUTO) 1 % (0-10); EOSINOPHILS # (AUTO) 0.7 10^3/uL (0.0-0.3); EOSINOPHILS % (AUTO) 5 % (0-10); HEMATOCRIT 52 % (40-54); HEMOGLOBIN 16.9 g/dL (13.3-17.7); LYMPHOCYTES % (AUTO) 16 % (12-44); MEAN CORPUSCULAR HEMOGLOBIN 30 pg (25-34); MEAN CORPUSCULAR HGB CONC 33 g/dL (32-36); MEAN CORPUSCULAR VOLUME 93 fL (80-99); MEAN PLATELET VOLUME 9.7 fL (9.0-12.2); MONOCYTES # (AUTO) 1.3 10^3/uL (0.0-1.0); MONOCYTES % (AUTO) 11 % (0-12); NEUTROPHILS % (AUTO) 66 % (42-75); PLATELET COUNT 207 10^3/uL (130-400)
[2023-01-02 18:01] LABS: POTASSIUM 4.5 MMOL/L (3.6-5.0)
[2023-01-02 18:02] LABS: CALCIUM 9.3 MG/DL (8.5-10.1)
[2023-01-02 18:04] LABS: PROTHROMBIN TIME PATIENT 13.3 SEC (12.2-14.7); TOTAL PROTEIN 6.9 GM/DL (6.4-8.2)
[2023-01-02 18:05] LABS: BILIRUBIN,TOTAL 0.3 MG/DL (0.1-1.0); PARTIAL THROMBOPLASTIN TIME 29 SEC (24-35)
[2023-01-02 18:07] LABS: CREATININE SERUM 1.94 MG/DL (0.60-1.30)
[2023-01-02 18:10] LABS: FIBRIN DEGRADATION PRODUCTS < 0.27 UG/ML (0.00-0.49); MAGNESIUM 1.9 MG/DL (1.6-2.4)
--- NOTE | 2023-01-02 18:38 | Diagnostic Imaging Report ---
EXAMINATION: Chest 1 view HISTORY: Chest pain COMPARISON: 12/30/2020. FINDINGS: Heart size and pulmonary vasculature are normal. The lungs are clear without consolidation, pleural effusion, or pneumothorax. Degenerative changes of the thoracic spine. Osseous structures are otherwise intact. IMPRESSION: 1. No acute radiographic abnormality in the chest. Dictated by: Dictated on workstation # [id number]
[2023-01-02 18:59] VITALS: BP 143/84
== END 2023-01-02 19:00 | disposition home or self-care (01) ==
LOC: EDUNIT# 16:57 → ER 17:00
DX: J06.9 Acute upper respiratory infection, unspecified (principal); G47.30 Sleep apnea, unspecified; Z99.89 Dependence on other enabling machines and devices
CPT/HCPCS: 36415; 71045; 80053; 83735; 83880; 85025; 85379; 85610; 85730; 93005